=== PATIENT | male | born 1960 | race Caucasian/White ===

== ENCOUNTER 2022-10-17 08:00 | Inpatient (IN) | payer OTHER, SELFPAY ==
[2022-10-17 08:11] VITALS: BP 141/78; PULSE 85; RESP 16; TEMP 36.8; O2SAT 96; BMI 29.7
--- NOTE | 2022-10-17 08:37 | CRLHL7_ITS ---
For Patients: As a result of the Century Cures Act, medical imaging exams and procedure reports are released immediately into your electronic medical record. You may view this report before your referring provider. If you have questions, please contact your health care provider. Indication: LLQ abdominal pain Technique: Postcontrast CT abdomen and pelvis. 99 cc Isovue 370 intravenous contrast. Please note that all CT scans at this facility use dose modulation, iterative reconstruction, and/or weight-based dosing when appropriate to reduce radiation dose to as low as reasonably achievable. Comparison: Radiographs 09/29/2022 Findings: There is a short segment stricture involving the sigmoid colon extending over a length of 2 cm. Mild ill-defined curvilinear densities are present adjacent to this area. Mild diverticulosis. No diverticulitis. The colon is distended proximal to this area with the colon measuring up to 6.3 cm. This extends to the cecal region. Appendix normal. No small bowel obstruction. No free air or free fluid. No abscess. Vascular calcifications. No aneurysm. Bladder normal. Prostate mildly heterogeneous. Kidneys and ureters normal. Normal adrenal glands and spleen. Mild pancreatic atrophy. Incidental fat deposition within the liver adjacent to the falciform ligament. Gallbladder normal. Discogenic spurring. No fracture.. Impression: Short-segment stricture involving the sigmoid colon with proximal colonic obstruction. Differential diagnosis includes postinflammatory stricture or adenocarcinoma. Colonoscopy recommended for further evaluation. Please note that all CT scans at this facility use dose modulation, iterative reconstruction, and/or weight-based dosing when appropriate to reduce radiation dose to as low as reasonably achievable. Dictated by Pedro Fritz MD @ 10/17/2022 10:47:14 AM (Electronically Signed)
--- NOTE | 2022-10-17 08:38 | ED_ITS ---
HPI - Abdominal Pain General Chief Complaint: Abdominal Pain Stated Complaint: Lower Abdominal Pain Time Seen by Provider: 10/17/22 08:23 History of Present Illness HPI narrative: This 62-year-old male comes in reporting left lower quadrant abdominal pain for the past couple weeks. He did go into a clinic appointment few days after these symptoms arose and was told that he could have constipation. He states that he has not been having as many bowel movements because he has not been eating much. He states that he has been losing weight because any time he eats he has nausea and worsened symptoms. He denies having any fevers. There is no report of blood in the toilet. His pain is worse when bending forward and sometimes worse with movement. Related Data Home Medications Medication Instructions Recorded Confirmed No Known Home Medications 10/17/22 10/17/22 Allergies Allergy/AdvReac Type Severity Reaction Status Date / Time No Known Drug Allergies Allergy Verified 10/17/22 10:04 Review of Systems Status of ROS Reports: 10 or more systems reviewed and unremarkable except as noted in History and below Narrative Constitutional: No fevers, no weight gain or loss. Eyes: No discharge. No vision changes. HENT: No congestion, no sore throat, no ear pain. Cardiovascular: No chest pain, no palpitations. Respiratory: No shortness of breath, no wheezes, no cough. Gastrointestinal: No vomiting, no diarrhea. Abdominal pain described above. Loss of appetite. Genitourinary: No dysuria, no hematuria. Musculoskeletal: Normal range of motion. Skin: No rashes, no pruritis. Neurological: No dizziness, weakness, sensory change, speech change. Endo/Heme/Allergies: No bruising or bleeding. No polydipsia. Pysch: no suicidality, no anxiety, no insomnia. All other systems reviewed and are negative. [facility] Social History Smoking Status: Never smoker Do you use any of these nicotine containing products: None Second hand tobacco smoke exposure: No How often do you have a drink containing alcohol: never How often do you have six or more drinks on one occasion: Never AUDIT-C Alcohol total score: 0 Non-prescribed substance use: denies use service: No Exam Narrative: Exam Narrative: Constitutional: Well-developed, well-nourished, no acute distress. HEENT: Normocephalic, atraumatic. Neck: Normal range of motion. Nontender. Supple. Heart: Regular. No murmurs. Normal rate. Intact distal pulses. Lungs: Clear to auscultation. No chest discomfort. No wheezes, rhonchi, or rales. Abdomen: Decreased bowel sounds. Tenderness in the left lower quadrant. Mild rebound tenderness. Genitalia: Deferred. Back: No midline tenderness. Normal range of motion. Extremities: Normal range of motion. No injury. Skin: Intact. No rash. Warm. No erythema or pallor. Neurologic: No altered sensation. No weakness. Alert and oriented. Psychiatric: No suicidality. No anxiety or depression. No insomnia. Nursing notes and vitals signs are reviewed. Const: Vital Signs, click to edit/add: Vital Signs - 24 hr 10/17/22 08:11 10/17/22 10:56 10/17/22 13:19 Temperature 98.2 F 97.5 F L Pulse Rate [Right] 85 75 Respiratory Rate 16 18 18 Blood Pressure [Ri t Upper Arm] 141/78 H 141/74 H 122/68 Pulse Oximetry 96 98 97 Oxygen Delivery Me thod Room Air Room Air Room Air Course Vital Signs Vital signs: Initial Vital Signs Temperature 98.2 F 10/17/22 08:11 Temperature Source Temporal Artery Scan 10/17/22 08:11 Pulse Rate 85 10/17/22 08:11 Pulse Rhythm 10/17/22 08:11 Respiratory Rate 16 10/17/22 08:11 Blood Pressure 141/78 H 10/17/22 08:11 Blood Pressure Mean 99 10/17/22 08:11 Blood Pressure Position Sitting 10/17/22 08:11 Pulse Oximetry 96 10/17/22 08:11 Oxygen Delivery Method 10/17/22 08:11 Vital Signs Temperature 98.2 F 10/17/22 08:11 Pulse Rate 85 10/17/22 08:11 Respiratory Rate 16 10/17/22 08:11 Blood Pressure 141/78 H 10/17/22 08:11 Pulse Oximetry 96 10/17/22 08:11 Oxygen Delivery Method 10/17/22 08:11 Temperature 97.5 F L 10/17/22 13:19 Pulse Rate 75 10/17/22 13:19 Respiratory Rate 18 10/17/22 13:19 Blood Pressure 122/68 10/17/22 13:19 Pulse Oximetry 97 10/17/22 13:19 Oxygen Delivery Method 10/17/22 13:19 MDM - Abdominal Pain MDM Narrative Medical decision making narrative: This patient comes in with a couple weeks of left lower quadrant abdominal pain. Prior to this he has been in good health and is not taking any medicines. He has had weight loss with difficulty with eating and even taking liquids. A CT scan of the abdomen and pelvis with contrast was completed and does show sign of a stricture or possible adenocarcinoma in the rectum causing dilation of the colon proximally. His lab results returned with normal findings. I spoke with the surgeon on-call, Dr. Bueno, regarding these findings. She is planning to take him to surgery tomorrow morning. I spoke with Dr. Zhang, hospitalist on- call, regarding his admission. The patient did receive 1 dose of Dilaudid 0.5 mg for pain relief. Lab Data Labs: Lab Results 10/17/22 10/17/22 10/17/22 Range/Units 08:50 08:50 12:07 WBC 7.19 (4.50-11.00) K/uL RBC 5.40 (4.30-5.90) m/uL Hgb 15.8 (13.5-17.5) gm/dL Hct 48.1 (37.0-53.0) % MCV 89 (80-100) fL MCH 29 (26-34) pg MCHC 33 (32-36) gm/dL RDW Coeff of Joie 12.9 (11.5-15.5) % Plt Count 315 (140-440) K/uL Neut % (Auto) 70.1 (42.0-72.0) % Lymph % (Auto) 20.9 (20-44) % [place] % (Auto) 7.8 (0.0-11.0) % Eos % (Auto) 1.1 (0.0-7.0) % Baso % (Auto) 0.0 (0.0-3.0) % Neut # (Auto) 5.04 (1.7-7.0) K/uL Lymph # (Auto) 1.50 (0.90-2.90) K/uL [place] # (Auto) 0.60 (0.00-0.90) K/UL Eos # (Auto) 0.08 (0.00-0.50) K/uL Baso # (Auto) 0.00 (0.00-0.30) K/uL Sodium 140 (135-149) mmol/L Potassium 3.9 (3.6-5.1) mmol/L Chloride 108 (96-114) mmol/L Carbon Dioxide 24 (20-32) mmol/L BUN 12 (7-30) mg/dL Creatinine 0.8 (0.5-1.5) mg/dL Estimated Creat Clear 84.34 Estimated GFR 99 ml/min Glucose 108 (60-115) mg/dL Calcium 9.1 (8.4-10.6) mg/dL Urine Color Yellow (Yellow) Urine Appearance Clear (Clear) Urine pH 6.0 (5.0-8.5) Ur Specific [place] 1.010 (1.000-1.030) Urine Protein Negative (Negative) Urine Glucose (UA) Negative (Negative) Urine Ketones 3+ A (Negative) Urine Blood Negative (Negative) Urine Nitrite Negative (Negative) Urine Bilirubin 1+ A (Negative) Urine Urobilinogen 0.2 (0.2-1.0) Ur Leukocyte Esterase Negative (Negative) Urine RBC 0-2 (0-2) Urine WBC 0-2 (0-5) Ur Squamous Epith Cells None (None-Few) Urine Bacteria None (None) SARS-CoV-2 (PCR) (Negative) 10/17/22 Range/Units 12:41 WBC (4.50-11.00) K/uL RBC (4.30-5.90) m/uL Hgb (13.5-17.5) gm/dL Hct (37.0-53.0) % MCV (80-100) fL MCH (26-34) pg MCHC (32-36) gm/dL RDW Coeff of Joie (11.5-15.5) % Plt Count (140-440) K/uL Neut % (Auto) (42.0-72.0) % Lymph % (Auto) (20-44) % [place] % (Auto) (0.0-11.0) % Eos % (Auto) (0.0-7.0) % Baso % (Auto) (0.0-3.0) % Neut # (Auto) (1.7-7.0) K/uL Lymph # (Auto) (0.90-2.90) K/uL [place] # (Auto) (0.00-0.90) K/UL Eos # (Auto) (0.00-0.50) K/uL Baso # (Auto) (0.00-0.30) K/uL Sodium (135-149) mmol/L Potassium (3.6-5.1) mmol/L Chloride (96-114) mmol/L Carbon Dioxide (20-32) mmol/L BUN (7-30) mg/dL Creatinine (0.5-1.5) mg/dL Estimated Creat Clear Estimated GFR ml/min Glucose (60-115) mg/dL Calcium (8.4-10.6) mg/dL Urine Color (Yellow) Urine Appearance (Clear) Urine pH (5.0-8.5) Ur Specific [place] (1.000-1.030) Urine Protein (Negative) Urine Glucose (UA) (Negative) Urine Ketones (Negative) Urine Blood (Negative) Urine Nitrite (Negative) Urine Bilirubin (Negative) Urine Urobilinogen (0.2-1.0) Ur Leukocyte Esterase (Negative) Urine RBC (0-2) Urine WBC (0-5) Ur Squamous Epith Cells (None-Few) Urine Bacteria (None) SARS-CoV-2 (PCR) Negative SARS-CoV-2 (Negative) Imaging Data CT scan - abdomen: Radiologist's impression: There is a short segment stricture involving the sigmoid colon extending over a length of 2 cm. Mild ill-defined curvilinear densities are present adjacent to this area. Mild diverticulosis. No diverticulitis. The colon is distended proximal to this area with the colon measuring up to 6.3 cm. This extends to the cecal region. Appendix normal. No small bowel obstruction. No free air or free fluid. No abscess. Vascular calcifications. No aneurysm. Bladder normal. Prostate mildly heterogeneous. Kidneys and ureters normal. Normal adrenal glands and spleen. Mild pancreatic atrophy. Incidental fat deposition within the liver adjacent to the falciform ligament. Gallbladder normal. Discogenic spurring. No fracture.. Impression: Short-segment stricture involving the sigmoid colon with proximal colonic obstruction. Differential diagnosis includes postinflammatory stricture or adenocarcinoma. Colonoscopy recommended for further evaluation. Chest x-ray: Radiologist's impression: No acute pathology. ECG Data Attestation: I personally reviewed and interpreted this ECG as follows: Interpretation: Normal sinus rhythm. Rate is 76 beats per minute. There are no ST or T-wave abnormalities. Discharge Plan Discharge Clinical Impression: Bowel obstruction, Abdominal pain Patient Disposition: Admitted As Inpatient Condition: Unchanged Prescriptions: No Action No Known Home Medications Follow Up/Referrals: Provider,Not a Local [Primary Care Provider] -
[2022-10-17 09:00] LABS: Eosinophils Absolute Auto 0.08 K/uL (0.00-0.50); Eosinophils Percent Auto 1.1 % (0.0-7.0); Hematocrit 48.1 % (37.0-53.0); Hemoglobin* 15.8 gm/dL (13.5-17.5); Immature Granulocytes Abs Auto 0.01 K/uL (0.00-0.30); Immature Granulocytes Pct Auto 0.1 %; Lymphocytes Percent Auto 20.9 % (20-44); Mean Corpuscular HGB Conc 33 gm/dL (32-36); Mean Corpuscular Hemoglobin 29 pg (26-34); Mean Corpuscular Volume 89 fL (80-100); Monocytes Percent Auto 7.8 % (0.0-11.0); Neutrophils Absolute Auto 5.04 K/uL (1.7-7.0); Neutrophils Percent Auto 70.1 % (42.0-72.0); Platelet Count* 315 K/uL (140-440); RDW Coefficient of Variation % 12.9 % (11.5-15.5); Slide Review Reflex No; White Blood Count* 7.19 K/uL (4.50-11.00)
[2022-10-17 09:55] LABS: Chloride* 108 mmol/L (96-114); Potassium* 3.9 mmol/L (3.6-5.1); Sodium* 140 mmol/L (135-149)
[2022-10-17 09:56] LABS: Blood Urea Nitrogen* 12 mg/dL (7-30); Calcium* 9.1 mg/dL (8.4-10.6); Carbon Dioxide* 24 mmol/L (20-32); Creatinine* 0.8 mg/dL (0.5-1.5); Est. Creatinine Clearance* 84.34; Estimated Glomerular Filt Rate 99 ml/min; Glucose* 108 mg/dL (60-115)
[2022-10-17] MEDS: 0.9 % SODIUM CHLORIDE 1000 ml 1,000 ML IV (10:53)
[2022-10-17 10:56] VITALS: BP 141/74; RESP 18; O2SAT 98
--- NOTE | 2022-10-17 11:44 | CRLHL7_ITS ---
For Patients: As a result of the Cures Act, medical imaging exams and procedure reports are released immediately into your electronic medical record. You may view this report before your referring provider. If you have questions, please contact your health care provider. INDICATION: Abdominal pain. COMPARISON: Two-view chest June 23, 2022. TECHNIQUE: Two-view chest. FINDINGS: Normal size cardiac silhouette. No acute pneumonic infiltrates or CHF. No pneumothorax or pleural effusion. Impression: No acute pathology. Dictated by Sindhu Mcpherson MD @ 10/17/2022 12:53:29 PM (Electronically Signed)
[2022-10-17 12:18] LABS: Appearance Urine Clear (Clear); Bilirubin Urine 1+ (Negative); Blood Urine Negative (Negative); Color Urine Yellow (Yellow); Glucose Urine Negative (Negative); Ketones Urine 3+ (Negative); Leukocyte Esterase Urine Negative (Negative); Nitrite Urine Negative (Negative); Protein Urine Negative (Negative); Urobilinogen Urine 0.2 (0.2-1.0)
[2022-10-17 12:34] LABS: RBC Urine 0-2 (0-2); WBC Urine 0-2 (0-5)
--- NOTE | 2022-10-17 13:14 | ED.NURSE ---
is asking for something for pain. will have surgery tomorrow. dr pierre did explain ct findings.
[2022-10-17 13:19] VITALS: BP 122/68; PULSE 75; RESP 18; TEMP 36.4; O2SAT 97
[2022-10-17] MEDS: HYDROmorphone 0.5 mg/0.5 ml inj IVP (13:34)
[2022-10-17 13:47] LABS: SARS PCR* Negative SARS-CoV-2 (Negative)
--- NOTE | 2022-10-17 14:50 | ED.NURSE ---
did give report to jose ireland.
[2022-10-17 15:08] VITALS: BP 122/68; PULSE 73; RESP 18; TEMP 36.4; O2SAT 97
[2022-10-17 16:06] LABS: Albumin* 4.3 g/dL (3.3-5.0)
[2022-10-17 16:08] LABS: Bilirubin Direct* 0.3 mg/dL (0.0-0.5); Bilirubin Total* 0.7 mg/dL (0.1-1.5); Total Protein* 7.2 g/dL (6.0-8.3)
[2022-10-17 16:09] LABS: Alanine Aminotransferase* 19 U/L (4-50); Alkaline Phosphatase* 67 U/L (40-150); Aspartate Amino Transferase* 28 U/L (12-35)
[2022-10-17] MEDS: LACTATED RINGERS 1000 ML 500 ML IV (16:53)
[2022-10-17] MEDS: ONDANSETRON 2 MG/ML inj 4 MG IVP ×2 (16:56→21:09)
[2022-10-17] MEDS: PANTOPRAZOLE SODIUM 40 MG INJ IVP (16:56)
[2022-10-17] MEDS: MORPHINE 2 MG/ML inj 4 MG IVP (16:56)
--- NOTE | 2022-10-17 17:32 | PM.IMHP1 ---
Hospitalist- H&P: HPI History of Present Illness Date Seen: 10/17/22 Chief complaint: Lower Abdominal Pain Narrative: Brigido Kay is a 62 year old male with at least 2 month history of worsening postprandial nausea and abdominal bloating, pain, constipation. He reports he is still having stools but is requiring enemas every other day to accomplish this. No blood in his stool. Stool is normal brown color and formed. He does not report decreased caliber of his stool. He has had 25 lb unintentional weight loss over these past 2 months. No fever. He has had nausea which has been severe. Along with this he gets dry heaves. Not vomiting any significant substance. He has had no previous surgery including no previous gastrointestinal surgery. No previous gastrointestinal problems. He had a normal colonoscopy about 10 years ago. He reports that he is otherwise healthy without other health concerns or problems recently. Review of Systems Narrative: No recent illness. He has not had recent COVID illness, cough, cold symptoms, fever, shortness of breath, chest pain, palpitations, syncope, urinary problems, bleeding or clotting problems. No previous surgeries or or adverse reaction to anesthesia. Several years ago he had an anal fissure that was treated with a topical cream and resolved. PFSH PFS Surgical History (Updated 10/17/22 @ 17:37 by Aiden Zhang MD) History of colonoscopy Family History (Updated 10/17/22 @ 17:38 by Aiden Zhang MD) Mother Multiple myeloma Father Bladder cancer Social History (Updated 10/17/22 @ 17:40 by Aiden Zhang MD) Narrative: He is and presents with his . He works for [employer] in [place]. He lives in [place]. His , Ladi, is healthcare power of corporate attorney. Code status is full. He is a nonsmoker. He does not drink alcohol. He does not use recreational drugs Smoking Status: Never smoker Do you use any of these nicotine containing products: None Second hand tobacco smoke exposure: No How often do you have a drink containing alcohol: never How often do you have six or more drinks on one occasion: Never AUDIT-C Alcohol total score: 0 Non-prescribed substance use: denies use service: No Meds Home Medications and Allergies Home Medications Medication Instructions Recorded Confirmed Type No Known Home Medications 10/17/22 10/17/22 History Home Medication Comments: He takes vitamins and occasionally takes ibuprofen but not recently Allergies Allergy/AdvReac Type Severity Reaction Status Date / Time No Known Drug Allergies Allergy Verified 10/17/22 10:04 Exam Narrative: Exam Narrative: He is alert and appears in no distress. He gives his own history corroborated by his . Head is normal. Eyes normal. Oropharynx normal except for a somewhat small airway. Neck is supple without mass or adenopathy. Respirations are clear to auscultation. Cardiovascular: S1, S2, regular rate and rhythm. No murmur gallop or rub. Abdomen: Bowel sounds diminished. Abdomen is somewhat distended. There is mild diffuse tenderness. When I palpate on his abdomen it does increase his nausea. External genitalia normal. Extremities without edema. good peripheral pulses. No rash. Const: Vital Signs, click to edit/add: Vital Signs - 24 hr 10/17/22 08:11 10/17/22 10:56 10/17/22 13:19 Temperature 98.2 F 97.5 F L Pulse Rate [Right] 85 75 Respiratory Rate 16 18 18 Blood Pressure [Ri ght Upper Arm] 141/78 H 141/74 H 122/68 Pulse Oximetry 96 98 97 Oxygen Delivery Me thod Room Air Room Air Room Air Documenting provider has reviewed patient's vital signs: yes Hospitalist - H&P: Result Labs Labs: Short CBC 10/17/22 Range/Units 08:50 WBC 7.19 (4.50-11.00) K/uL Hgb 15.8 (13.5-17.5) gm/dL Hct 48.1 (37.0-53.0) % Plt Count 315 (140-440) K/uL BMP 10/17/22 08:50 Sodium 140 Potassium 3.9 Chloride 108 Carbon Dioxide 24 BUN 12 Creatinine 0.8 Glucose 108 Calcium 9.1 Liver Function 10/17/22 Range/Units 08:50 Total Bilirubin 0.7 (0.1-1.5) mg/dL Direct Bilirubin 0.3 (0.0-0.5) mg/dL AST 28 (12-35) U/L ALT 19 (4-50) U/L Alkaline Phosphatase 67 (40-150) U/L Albumin 4.3 (3.3-5.0) g/dL Urine 10/17/22 Range/Units 12:07 Urine Color Yellow (Yellow) Urine Appearance Clear (Clear) Urine pH 6.0 (5.0-8.5) Ur Specific [place] 1.010 (1.000-1.030) Urine Protein Negative (Negative) Urine Glucose (UA) Negative (Negative) Assessment and Plan Assessment and plan (1) Colonic obstruction: Problem comment: Patient has an obstruction his sigmoid colon. Cause is uncertain. Surgery is consulted. Plan is to take him to the OR for open sigmoid resection with placement of a colostomy. Plan is discussed with patient and his . Status: Acute Plan Admit for colon surgery. I have identified no significant health problems that would complicate perioperative care. Patient is at relatively low risk for perioperative complications. Total time spent today is 70 minutes, 50 minutes in coordination care and discussing with patient and and other providers ongoing evaluation management of sigmoid colon obstruction
[2022-10-17 19:00] VITALS: BP 126/77; PULSE 78; RESP 18; TEMP 36.6; O2SAT 95
--- NOTE | 2022-10-17 19:33 | PC.NURSE ---
Nursing Care Notes: [id number] Pt this shift came up from ED in wheelchair, able to ambulate self in and out of chair. No c/o pain upon arrival but rated 8/10 about 1700. Pain meds given per eMAR, as well as anti nausea per pt request. 1 unwitnessed emesis per pt report while on unit. Resting in bed most of shift. NPO for surgery tomorrow.
[2022-10-17] MEDS: LACTATED RINGERS 1000 ML 1,000 ML 125 ML IV (21:11)
[2022-10-17 23:00] VITALS: RESP 18
[2022-10-18] VITALS (23 sets, daily range): BP systolic 96–125; BP diastolic 58–89; PULSE 72–90; RESP 14–20; TEMP 36.1–37; O2SAT 90–97
[2022-10-18] MEDS: MORPHINE 2 MG/ML inj 4 MG IVP ×2 (01:07→14:55)
--- NOTE | 2022-10-18 04:38 | PC.NURSE ---
patient NPO overnight, pain and nausea meds given per EMAR. patient up ad [place] in room.
[2022-10-18] MEDS: LACTATED RINGERS 1000 ML 1,000 ML 125 ML IV (04:55)
--- NOTE | 2022-10-18 07:59 | P.GSCN_ITS ---
History of Present Illness Consult details Date Seen: 10/18/22 Consult date: 10/18/22 Narrative: 62-year-old male presented to emergency room with abdominal pain and inability to eat and I was asked by Dr. Ramirez to see him in consultation. Patient states that the day prior to presentation he was trying to eat applesauce and had significant nausea and dry heaving. He has been having issues with eating for the past several weeks. He was also having small bowel movements. He was passing lot of gas but it was difficult to have bowel movements. He was seen in clinic a couple weeks ago with constipation and was recommended to take MiraLax. He tried MiraLax with no relief and was recommended to take enemas. Patient had about 25 lb unintentional weight loss in the last few weeks. Patient's last colonoscopy was about 8-10 years ago. He denies family history of colon cancer but his dad had polyps. I reviewed patient's chart and his laboratory values were all normal. His hemoglobin was normal and his white count was normal. An abdominal CT showed a sigmoid colon stricture with proximal colonic dilatation that appears to be chronic. There is no dilated small intestine. No lymphadenopathy near the stricture. Review of Systems Narrative: General: no fevers HENT: no problems swallowing CV: no shortness of breath Resp: no cough GI: No nausea, vomiting, abdominal pain PFSH PFSH Surgical History (Updated 10/17/22 @ 17:37 by Aiden Zhang MD) History of colonoscopy Family History (Updated 10/17/22 @ 17:38 by Aiden Zhang MD) Mother Multiple myeloma Father Bladder cancer Social History (Updated 10/17/22 @ 17:40 by Aiden Zhang MD) Narrative: He is and presents with his . He works for [employer] in [place]. He lives in [place]. His , Ladi, is healthcare power of estate attorney. Code status is full. He is a nonsmoker. He does not drink alcohol. He does not use recreational drugs Highest level of school completed/degree received: some college, no degree Smoking Status: Never smoker Do you use any of these nicotine containing products: None Second hand tobacco smoke exposure: No How often do you have a drink containing alcohol: never How often do you have six or more drinks on one occasion: Never AUDIT-C Alcohol total score: 0 Non-prescribed substance use: denies use service: No Meds Home Medications and Allergies Home Medications Medication Instructions Recorded Confirmed Type No Known Home Medications 10/17/22 10/17/22 History Allergies Allergy/AdvReac Type Severity Reaction Status Date / Time No Known Drug Allergies Allergy Verified 10/17/22 10:04 Exam Narrative: Exam Narrative: General appearance: Alert, cooperative, and in no distress Pulmonary: Chest symmetric, lungs clear bilaterally Cardiovascular Heart: Regular rate and rhythm, S1, S2, no murmurs/rubs/gallops Gastrointestinal Abdominal: soft, protuberant, minimally distended, not tender to palpation Skin: Normal skin color, texture, and turgor. No rashes or lesions. Psychiatric: Alert, cooperative, normal affect. Const: Vital Signs, click to edit/add: Vital Signs - 24 hr 10/17/22 08:11 10/17/22 10:56 10/17/22 13:19 Temperature 98.2 F 97.5 F L Pulse Rate [Right Pulse Oximeter] Pulse Rate [Right] 85 75 Respiratory Rate 16 18 18 Blood Pressure [Ri ght Arm] Blood Pressure [Ri ght Upper Arm] 141/78 H 141/74 H 122/68 Pulse Oximetry 96 98 97 Oxygen Delivery Me thod Room Air Room Air Room Air 10/17/22 15:08 10/17/22 19:00 10/17/22 23:00 Temperature 97.5 F L 98 F Pulse Rate [Right Pulse Oximeter] 73 78 Pulse Rate [Right] Respiratory Rate 18 18 18 Blood Pressure [Ri ght Arm] 122/68 126/77 Blood Pressure [Ri ght Upper Arm] Pulse Oximetry 97 95 Oxygen Delivery Me thod Room Air Room Air 10/17/22 23:00 10/18/22 01:10 10/18/22 05:00 Temperature 98 F 98 F Pulse Rate [Right Pulse Oximeter] 83 76 Pulse Rate [Right] Respiratory Rate 18 18 18 Blood Pressure [Ri ght Arm] 125/77 Blood Pressure [Ri ght Upper Arm] Pulse Oximetry 95 95 Oxygen Delivery Me thod Room Air Room Air 10/18/22 07:43 Temperature 97.7 F Pulse Rate [Right Pulse Oximeter] 72 Pulse Rate [Right] Respiratory Rate 18 Blood Pressure [Ri ght Arm] 120/75 Blood Pressure [Ri ght Upper Arm] Pulse Oximetry 97 Oxygen Delivery Me thod Room Air Results Labs Labs: Abnormal lab results 10/17/22 Range/Units 12:07 Urine Ketones 3+ A (Negative) Urine Bilirubin 1+ A (Negative) Diabetes panel 10/17/22 Range/Units 08:50 Sodium 140 (135-149) mmol/L Potassium 3.9 (3.6-5.1) mmol/L Chloride 108 (96-114) mmol/L Carbon Dioxide 24 (20-32) mmol/L BUN 12 (7-30) mg/dL Creatinine 0.8 (0.5-1.5) mg/dL Glucose 108 (60-115) mg/dL Calcium 9.1 (8.4-10.6) mg/dL AST 28 (12-35) U/L ALT 19 (4-50) U/L Alkaline Phosphatase 67 (40-150) U/L Total Protein 7.2 (6.0-8.3) g/dL Albumin 4.3 (3.3-5.0) g/dL Calcium panel 10/17/22 Range/Units 08:50 Calcium 9.1 (8.4-10.6) mg/dL Albumin 4.3 (3.3-5.0) g/dL Pituitary panel 10/17/22 Range/Units 08:50 Sodium 140 (135-149) mmol/L Potassium 3.9 (3.6-5.1) mmol/L Chloride 108 (96-114) mmol/L Carbon Dioxide 24 (20-32) mmol/L BUN 12 (7-30) mg/dL Creatinine 0.8 (0.5-1.5) mg/dL Glucose 108 (60-115) mg/dL Calcium 9.1 (8.4-10.6) mg/dL Adrenal panel 10/17/22 Range/Units 08:50 Sodium 140 (135-149) mmol/L Potassium 3.9 (3.6-5.1) mmol/L Chloride 108 (96-114) mmol/L Carbon Dioxide 24 (20-32) mmol/L BUN 12 (7-30) mg/dL Creatinine 0.8 (0.5-1.5) mg/dL Glucose 108 (60-115) mg/dL Calcium 9.1 (8.4-10.6) mg/dL Total Bilirubin 0.7 (0.1-1.5) mg/dL AST 28 (12-35) U/L ALT 19 (4-50) U/L Alkaline Phosphatase 67 (40-150) U/L Total Protein 7.2 (6.0-8.3) g/dL Albumin 4.3 (3.3-5.0) g/dL All other labs normal. Assessment and Plan Assessment and plan (1) Colonic obstruction: Problem comment: Patient has an obstruction his sigmoid colon. Cause is uncertain. Surgery is consulted. Plan is to take him to the OR for open sigmoid resection with placement of a colostomy. Plan is discussed with patient and his . Status: Acute Plan 62-year-old male presents with sigmoid colon stricture and proximal colonic obstruction of unknown etiology. I discussed with the patient and his his laboratory and imaging findings. Patient's sigmoid stricture could be either due to diverticular disease although patient did not have any episodes of diverticulitis that he can recall or it could be due to colorectal cancer. I recommended to proceed with laparoscopic, possible open sigmoid colectomy. The procedure was discussed in detail. If there is a significant size mismatch of the proximal and distal colon after the resection, will plan on colostomy. I described to the patient that this colostomy would be temporary. The risks with the procedure including infection, bleeding, anastomotic leak, colonic injury, and injury to other intra-abdominal organs were all discussed with the patient, and he agreed to proceed.
[2022-10-18] MEDS: ERTAPENEM 1 GM inj IVPB (08:32)
--- NOTE | 2022-10-18 09:03 | PC.NURSE ---
pt to surgery @ 0815 via bed
--- NOTE | 2022-10-18 09:14 | SUR.OPER ---
Update call made to , Arabella, at 9am, surgery has begun.
[2022-10-18] MEDS: BUPIVACAINE 0.5% 30 ML INJECTION (09:15)
--- NOTE | 2022-10-18 09:36 | P.NB_ITS ---
Nerve Block Nerve Block Time Seen by Provider: 08:25 Date Seen: 10/18/22 Type of block requested by surgeon for post-operative analgesia: TAP Side: bilateral Time out performed: Yes Verification of patient name: Yes Verification of date of : Yes Name of person performing procedure: Zachery Tamez CRNA Continuous monitoring Was continuous monitoring of O2 sat, B/P, hotel casino floorperson, recorded every 15 minutes?: Yes Procedure Checklist: sterile prep, needles and gloves Ultrasound guided. Images saved: Yes Medications given in 5ml increments after negative aspiration: Marcaine (30 total) %: 25 mL: 15 Needle gauge: 20 and Exparel (10 total) mL: 5 Needle gauge: 20 Patient tolerated procedure well: Yes Block Charges Block Charge (with Pro Fee): TAP Bilateral Use of Ultrasound Machine for Block: Yes- US Guidance/pain block
--- NOTE | 2022-10-18 10:29 | SUR.OPER ---
Patients , Arabella, was updated on the procedure surgeon needed to convert to open an procedure at approximately 10am.
[2022-10-18] MEDS: LACTATED RINGERS 1000 ML 1,000 ML 100 ML IV ×3 (12:20→12:55)
--- NOTE | 2022-10-18 13:17 | SUR.OPER ---
Update call placed to , Arabella, at approximately 1250pm
--- NOTE | 2022-10-18 14:08 | W.ANESCHARGE ---
Anesthesia Charges Start Date/Time Anesthesia Start Date: 10/18/22 Anesthesia Start Time: 08:20 Stop Date/Time Anesthesia Stop Date: 10/18/22 Anesthesia Stop Time: 13:55 Summary Emergency: Yes
--- NOTE | 2022-10-18 14:35 | P.GSOP_ITS ---
Operative Note Date of procedure: 10/18/22 Type of Procedure: 1. Laparoscopic converted to open sigmoidectomy. 2. End descending colostomy. Procedure Description: After discussing the risks and benefits of the procedure, the patient signed informed consent.? The patient was brought to the operating room and placed on the operating table in supine position.? Care was taken to pad the patient's pressure points.? The patient was then intubated by anesthesia.??Patient was then placed in modified lithotomy. A Silva catheter was placed under sterile conditions. The operative site was then prepped and draped in the usual sterile fashion.? A time-out was then performed. The abdomen was entered in the left upper quadrant using a Visiport technique. The abdominal wall layers were visualized and the abdomen was entered. The abdomen was insufflated with carbon dioxide. No intra-abdominal injury was noted in the left upper quadrant. We then placed additional laparoscopic ports under direct visualization. A 5 mm port was placed above the umbilicus and in the right mid abdomen, and 12 mm port was placed in the right lower quadrant. The patient was placed in the Trendelenburg position with the left side up. The sigmoid colon was identified. The stricture was palpated in the proximal sigmoid colon. This was tightly adherent to the lateral abdominal wall. Those adhesions were taken down with Harmonic scalpel by excising peritoneum that was adherent to the sigmoid colon. The dissection was carried towards retroperitoneum. The left ureter was not identified in this view but care was taken not to injure it. Once the strictured colon adherent to the abdominal wall was mobilized, I directed my attention to the medial colonic mesentery. The sigmoid colon was retracted towards the abdominal wall. It was difficult to grasp the sigmoid colon in this location. Sigmoid mesentery was incised with the Harmonic scalpel but visualization was difficult due to abundance of small intestine with some of the loops of small intestine being dilated. During this dissection a hot blade of Harmonic scalpel accidentally touched the small intestine. This injured area was examined and decision was made to over-sew this with silk sutures. 3-0 silk suture was used to place 2 interrupted Lambert sutures over the injured serosa. This was done intracorporeally. The small bowel lumen was widely open after the sutures were placed. I then attempted to carry the dissection towards the pelvis by dividing the sigmoid mesentery with Harmonic scalpel. However, visualization was very difficult with dilated colon and small-bowel occupying a lot of the intra-abdominal space. Decision was made to convert this procedure to an open procedure. The laparoscopic ports were then removed. A lower midline skin incision was made with a scalpel starting just above the umbilicus and extended to the pubic bone. Subcutaneous fat was divided with cautery. The subcutaneous fat was at least 4-5 cm thick. The anterior fascia was grasped with Rukhsana clamps and incised with cautery. Posterior sheath and peritoneum were grasped with Claudia clamps and abdomen was entered with Metzenbaum scissors. The incision was then extended superiorly and inferiorly up to the length of the skin incision. An Omni retractor was then placed and used throughout the case. The small bowel that was previously oversewn was examined and appeared healthy. No additional sutures were placed. The small bowel was retracted cephalad and secured in place with Omni retractor blades. We continued with mobilization of sigmoid colon mesentery. The vascular pedicle of the sigmoid colon was identified. This was clamped with right angle clamps, divided with Metzenbaum scissors, and tied with Vicryl ties. Sigmoid colonic mesentery dissection was carried towards the pelvis with the Harmonic scalpel. The superior rectal artery and vein were divided with clamps and ties. Left laterally I was able to identify the ureter and that was away from our dissection. When the distal sigmoid colon was mobilized, it was divided with a contour stapler. The Bert's pouch staple line was examined and bleeding from the staple line was oversewn with Vicryl sutures. The sigmoid colon was then retracted cephalad and mesenteric dissection was carried to the mid descending colon. The white line of Toldt was divided with cautery as well. At this time I elected to proceed with creating an ostomy opening. The anterior fascia on the left side was grasped with Rukhsana clamps. An elliptical skin incision was made with cautery and the left mid abdomen. Subcutaneous fat was dissected with cautery down to the anterior fascia. A cruciate incision was made through the anterior fascia and rectus muscle was retracted medially and laterally. Posterior sheath and peritoneum were then incised with cautery. The opening was large enough to fit 2 fingers through. I attempted to exteriorize the mobilized sigmoid colon however the stricture was thickened and I was not able to exteriorized the entire colon. The sigmoid colon was then divided with 2 ELIZABETH jen at the level of the mid descending colon. The specimen was passed off the field to be examined on the back table. At the end of the case I did examine the specimen, and it was suspicious for diverticular stricture. The stapled end of the descending colon was then exteriorized through the stoma opening. The descending colon was sutured in place to the anterior fascia with Vicryl sutures. The stoma was not matured at this time. We then proceeded with abdominal closure. The abdomen was irrigated with normal saline. No bleeding was seen at all surgical sites. The omentum was placed over the small intestine. The anterior fascia was then closed with 2 running 0-0 Maxon sutures. Subcutaneous fat was a bundant and was reapproximated with interrupted Vicryl sutures. The dermis was reapproximated with interrupted 3-0 Vicryl sutures. The skin of the midline incision was closed with jen. The right lower quadrant incision fascia was closed with an interrupted 0-0 Vicryl suture. All laparoscopic skin incisions were closed with 4-0 Monocryl stitch. Steri-Strips were placed over the laparoscopic incisions. The midline laparotomy incision was then covered with gauze and tape. I then proceeded with maturing the end colostomy. The anterior fascia next to the colostomy was closed with a running 0-0 Vicryl suture because the fascial opening appeared to be too lax. The protruding colonic and was difficult to eviscerate above the level of the skin because of the thickened nature of the a bdominal wall. Medially the skin incision was reapproximated with Vicryl sutures to make the skin incisions smaller. The staple line was excised with cautery. The mucosa of the stoma appeared to be dusky at the surface of the skin but when intubated no pressure or tight areas were noted through the fascial opening. Medially I elected to close the colonic opening to make the common opening through the ostomy skin incision smaller. The stoma was then matured by placing interrupted Vicryl sutures of the mucosa 2 colonic serosa and dermis in the Marla like fashion. Mucosa was then additionally reapproximated to the dermis with interrupted 3-0 Vicryl sutures. The stoma again was examined because the mucosa above the level of the skin appeared dusky but mucosa in the stoma was healthy in appearance. The ostomy appliance was then placed over the stoma. ?All counts were correct at the end of the case. The patient was then woken and transported to the recovery area in stable condit ion. ? The patient tolerated the procedure well. Findings: Proximal sigmoid colon stricture most likely due to diverticular disease. Anesthesia: GETA Surgeon: Justyn Bueno MD Estimated blood loss (mL): 15 Condition: stable Disposition: PACU
--- NOTE | 2022-10-18 15:40 | PC.NURSE ---
shift note: pt back to ccu3 via bed @0860. pt drowsy. lap sites x4 c/d/i. vertical drs to lt midabd c/d/i. colostomy site dry with loose brown stool in bag. BS present to rt side. LS clr. pt on 2L pnc O2. cardoza patent with clr wan urine. morphine sulfate given IV for 10/10 abd pain
[2022-10-18] MEDS: HYDROmorphone 0.5 mg/0.5 ml inj IVP ×3 (17:06→22:19)
--- NOTE | 2022-10-18 23:42 | PC.NURSE ---
End of Shift: Patient pleasant and cooperative. Afebrile. Rating pain at start of shift 10/10 after previous RN administered Morphine, Updated MD and order changed to Dilaudid. Dilaudid given x3 this shift and pain decreased to 4-5/10. O2 sats decrease to 87% when patient is sleeping, 1L NC to keep sats greater than 90%. Ostomy with 200 mL brown liquid output this shift and heard flatus passed in to bag. Silva patent. Patient declined to get out of bed. Encouraged frequent shifting of weight and frequent turn and reposition.
[2022-10-19] MEDS: LACTATED RINGERS 1000 ML 1,000 ML 100 ML IV ×3 (00:29→19:02)
[2022-10-19] MEDS: HYDROmorphone 0.5 mg/0.5 ml inj IVP ×7 (02:41→23:00)
[2022-10-19 03:00] VITALS: BP 109/65; PULSE 89; RESP 18; TEMP 36.8; O2SAT 94
[2022-10-19 07:30] VITALS: BP 118/68; PULSE 90; RESP 16; RESP 18; TEMP 36.8; O2SAT 95
--- NOTE | 2022-10-19 07:58 | PC.NURSE ---
Shift note: Surgical dressing is intact, stoma's dressing overlaps it and leaked on the edge of the dressing. Oncoming RN notified. Pain 5-7/10 treated per eMAR with relief. Bowel sounds present
[2022-10-19 11:00] VITALS: BP 114/78; PULSE 78; RESP 16; TEMP 36.9; O2SAT 93
--- NOTE | 2022-10-19 11:38 | PC.NURSE ---
up in recliner. wound care and ostomy replaced
--- NOTE | 2022-10-19 11:44 | PM.GSPN ---
Subjective Subjective Date Seen: 10/19/22 Interval history: Patient is doing well postoperatively. He does complain of abdominal pain that is relieved with pain medication. He had stool and gas from his stoma. Denies any vomiting. Had okay urine output. Exam Narrative: Exam Narrative: Abdomen not distended, tender to palpation throughout, midline laparotomy incision is with intact jen. The dressing over laparotomy incision was changed because of social each from the ostomy appliance. The ostomy appliance was removed and the colostomy appears congested with 2 areas of dark appearing mucosa laterally and medially. Nitro-Bid was applied to a tiny piece of Xeroform and applied over those dusky areas of colostomy. A new stoma appliance was applied. Const: Vital Signs, click to edit/add: Vital Signs - 24 hr 10/18/22 13:50 10/18/22 13:55 10/18/22 14:00 Temperature 98.6 F Pulse Rate 87 85 90 Pulse Rate [Right Pulse Oximeter] Respiratory Rate 18 18 18 Blood Pressure 116/71 110/67 104/69 Blood Pressure [Le ft Arm] Blood Pressure [Ri ght Arm] Pulse Oximetry 90 96 94 Oxygen Delivery Me thod OxyMask OxyMask OxyMask Oxygen Flow Rate 8 8 8 10/18/22 14:05 10/18/22 14:10 10/18/22 14:15 Temperature Pulse Rate 90 89 86 Pulse Rate [Right Pulse Oximeter] Respiratory Rate 18 20 20 Blood Pressure 108/70 104/68 112/72 Blood Pressure [Le ft Arm] Blood Pressure [Ri ght Arm] Pulse Oximetry 96 96 96 Oxygen Delivery Me thod OxyMask OxyMask OxyMask Oxygen Flow Rate 8 8 6 10/18/22 14:20 10/18/22 14:25 10/18/22 14:35 Temperature 97.7 F Pulse Rate 88 86 Pulse Rate [Right Pulse Oximeter] 82 Respiratory Rate 20 20 14 Blood Pressure 109/64 111/67 Blood Pressure [Le ft Arm] Blood Pressure [Ri ght Arm] 123/73 Pulse Oximetry 96 96 97 Oxygen Delivery Me thod OxyMask OxyMask OxyMask Oxygen Flow Rate 6 6 8 10/18/22 14:35 10/18/22 14:35 10/18/22 14:40 Temperature 97.7 F 97.7 F 97.3 F L Pulse Rate 82 Pulse Rate [Right Pulse Oximeter] 82 80 Respiratory Rate 14 14 14 Blood Pressure Blood Pressure [Le ft Arm] Blood Pressure [Ri ght Arm] 123/73 123/73 121/77 Pulse Oximetry 97 96 Oxygen Delivery Me thod OxyMask OxyMask OxyMask Oxygen Flow Rate 8 8 8 10/18/22 14:45 10/18/22 15:00 10/18/22 15:15 Temperature 97.3 F L 97.7 F 98.4 F Pulse Rate Pulse Rate [Right Pulse Oximeter] 80 82 80 Respiratory Rate 14 14 16 Blood Pressure Blood Pressure [Le ft Arm] Blood Pressure [Ri ght Arm] 121/77 120/72 122/73 Pulse Oximetry 96 95 95 Oxygen Delivery Me thod Nasal Cannula Nasal Cannula Nasal Cannula Oxygen Flow Rate 2 2 2 10/18/22 15:45 10/18/22 16:15 10/18/22 17:15 Temperature 97.8 F Pulse Rate Pulse Rate [Right Pulse Oximeter] 80 81 78 Respiratory Rate 16 16 16 Blood Pressure Blood Pressure [Le ft Arm] Blood Pressure [Ri ght Arm] 119/67 114/89 113/61 Pulse Oximetry 93 93 93 Oxygen Delivery Me thod Nasal Cannula Nasal Cannula Nasal Cannula Oxygen Flow Rate 1 1 1 10/18/22 18:15 10/18/22 19:15 10/18/22 20:15 Temperature 98.4 F 97.0 F L Pulse Rate Pulse Rate [Right Pulse Oximeter] 82 86 86 Respiratory Rate 16 16 16 Blood Pressure Blood Pressure [Le ft Arm] 106/58 L 106/58 L 107/59 L Blood Pressure [Ri ght Arm] Pulse Oximetry 95 91 91 Oxygen Delivery Me thod Nasal Cannula Nasal Cannula Nasal Cannula Oxygen Flow Rate 1 1 1 10/18/22 23:00 10/18/22 23:00 10/19/22 03:00 Temperature 98.4 F 98.2 F Pulse Rate Pulse Rate [Right Pulse Oximeter] 85 85 89 Respiratory Rate 16 16 18 Blood Pressure Blood Pressure [Le ft Arm] 96/61 109/65 Blood Pressure [Ri ght Arm] Pulse Oximetry 94 94 Oxygen Delivery Me thod Nasal Cannula Nasal Cannula Oxygen Flow Rate 1 1 Progress Note: A&P Assessment and plan (1) S/P laparoscopic-assisted sigmoidectomy: Problem details: Lap converted to open sigmoid colectomy with Bert's pouch and end colostomy for sigmoid stricture. Status: Acute Assessment and Plan: 62-year-old male s/p lap converted to open sigmoidectomy and end-colostomy POD 1. Patient is doing well overall. Will DC his Silva catheter. The colostomy appears congested with 2 small spots of dusky appearing mucosa. We will apply Nitro-Bid to those areas b.i.d. for the next 2 days to see if that helps bring more blood flow. Patient is learning about colostomy cares. Patient did have gas and stool through his stoma and I suspect that is because of previous obstruction. I do not think he has return of bowel function yet. Patient can have sips of clears for comfort for now.
[2022-10-19 15:00] VITALS: BP 120/72; PULSE 99; RESP 16; TEMP 36.9; O2SAT 91
--- NOTE | 2022-10-19 15:34 | PC.NURSE ---
shift note: abd pain at incision site 5-6. Pt medicated with dilaudid x3 with relief of pain to 310. Pt states he passed flatus in ostomy x2. Stoma purplish in color an moist. Ostomy site cleaned and changed with surgeon this a.m. Drsg reapplied to vertical abd incision. jen to vertical abd incision c/d/i. Pt up to recliner for 4 hrs. pt ambulated with 1/sba to door x2. IV patent. sony goodrich'd @ 1100
[2022-10-19 19:00] VITALS: BP 117/72; PULSE 78; RESP 16; TEMP 36.9; O2SAT 92
[2022-10-19 20:08] LABS: Prealbumin 18.5 mg/dL (20.0-40.0)
[2022-10-19 20:32] LABS: Carcinoembryonic Antigen 1.7 ng/mL (<=3.8)
[2022-10-19 23:00] VITALS: BP 119/76; PULSE 93; RESP 16; TEMP 36.7; O2SAT 92
--- NOTE | 2022-10-19 23:44 | PC.NURSE ---
Patient taking in some ice chips. Denies nausea. 75 mL of liquid brown stool emptied from ostomy bag. Bowel sounds are hypoactive. Midline abdomnial dressing is clean dry and intact. Ostomy appliance is intact with no appearance of leaking. Bag removed and xerofoam/nitro paste applied. Ostomy is dusky/dark purple in appearance. Pt receiviing Dilaudid PRN for pain. Up in the [place] this evening for walk.
[2022-10-20] MEDS: HYDROmorphone 0.5 mg/0.5 ml inj IVP ×5 (02:02→22:28)
[2022-10-20] MEDS: ONDANSETRON 2 MG/ML inj 4 MG IVP ×2 (02:21→06:52)
[2022-10-20 02:26] VITALS: BP 113/61; BP 132/80; PULSE 88; RESP 16; TEMP 36.7; O2SAT 90
[2022-10-20] MEDS: LACTATED RINGERS 1000 ML 1,000 ML 100 ML IV ×2 (04:36→16:12)
--- NOTE | 2022-10-20 05:30 | PC.NURSE ---
[id number]: patient up with assist X1, pain rated 5/10, meds per EMAR. abd. incision c/d/i, small amount liquid stool in ostomy.
[2022-10-20 07:45] VITALS: BP 132/94; PULSE 86; RESP 16; TEMP 36.8; O2SAT 132; O2SAT 92
--- NOTE | 2022-10-20 09:16 | PM.GSPN ---
Subjective Subjective Date Seen: 10/20/22 Interval history: 62-year-old male admitted to the hospital with diverticulum sigmoid stricture s/p exploratory laparotomy open sigmoidectomy. His pain is controlled with pain medications. He had an episode of nausea but no vomiting. He had bowel movements through his ostomy. He ambulated multiple times yesterday. Urinated without difficulties. Exam Narrative: Exam Narrative: Abdomen soft, minimally distended, tender to palpation in the right side but not on the left. Colostomy is pinking up with 2 areas mucosa that has necrotic appearance. This is laterally and most medially. Small amount of stool was noted in the ostomy bag. Const: Vital Signs, click to edit/add: Vital Signs - 24 hr 10/19/22 11:00 10/19/22 15:00 10/19/22 15:00 Temperature 98.5 F 98.5 F Pulse Rate [Right Pulse Oximeter] 78 99 Respiratory Rate 16 16 16 Blood Pressure [Le ft Arm] 114/78 120/72 Blood Pressure [Ri ght Arm] Pulse Oximetry 93 91 91 Oxygen Delivery Me thod Nasal Cannula Nasal Cannula Nasal Cannula Oxygen Flow Rate 0.5 1 1 10/19/22 15:00 10/19/22 19:00 10/19/22 23:00 Temperature 98.4 F 98.1 F Pulse Rate [Right Pulse Oximeter] 99 78 93 Respiratory Rate 16 16 16 Blood Pressure [Le ft Arm] 117/72 119/76 Blood Pressure [Ri ght Arm] Pulse Oximetry 92 92 Oxygen Delivery Me thod Nasal Cannula Nasal Cannula Oxygen Flow Rate 1 1 10/19/22 23:00 10/19/22 23:00 10/20/22 02:26 Temperature 98.1 F Pulse Rate [Right Pulse Oximeter] 93 88 Respiratory Rate 16 16 16 Blood Pressure [Le ft Arm] 132/80 Blood Pressure [Ri ght Arm] 113/61 Pulse Oximetry 92 90 Oxygen Delivery Me thod Nasal Cannula Nasal Cannula Oxygen Flow Rate 1 1 Progress Note: A&P Assessment and plan (1) S/P laparoscopic-assisted sigmoidectomy: Status: Acute Assessment and Plan: 62-year-old male s/p Lap converted to open sigmoid colectomy with Bert's pouch and end colostomy for sigmoid stricture. Patient is doing well. We can advance his diet to sips of clears. I discussed with the patient that if he feels nauseated, he should slow down with his diet. We will continue applying Nitro-Bid to the areas of necrosis for today and stop tomorrow. I discussed with the patient that 1 of my partners will see him tomorrow for rounds.
[2022-10-20 13:40] VITALS: BP 141/82; PULSE 88; RESP 16; TEMP 36.8; O2SAT 91
[2022-10-20 16:00] VITALS: BP 130/77; PULSE 79; RESP 16; TEMP 36.6; O2SAT 93
--- NOTE | 2022-10-20 16:00 | PC.NURSE ---
shift note: pt up 1/assist ambulating in tripathi and to bathroom. pt rating abd incisional pain 5/10. pt medicated with dilaudid x1. BS absent x4. stoma purplish with 2 blackened areas to sides. emptied 100cc soft liquid urine from ostomy bag. drsg to incision and colostomy site c/d/i. Pt has clr LS throughout. Pt voiding. IV replaced to lt hand. Pt denies nausea
[2022-10-20 19:00] VITALS: BP 133/78; PULSE 89; RESP 16; TEMP 36.9; O2SAT 94
[2022-10-20 23:00] VITALS: BP 137/80; PULSE 87; PULSE 89; RESP 16; TEMP 36.9; O2SAT 91; O2SAT 92
[2022-10-21] MEDS: LACTATED RINGERS 1000 ML 1,000 ML 100 ML IV ×3 (02:33→21:47)
[2022-10-21 03:00] VITALS: PULSE 76; RESP 14; O2SAT 91
--- NOTE | 2022-10-21 06:46 | PC.NURSE ---
Shift note: Surgical dressing is C/D/I, minimal amount of brown output in stoma, no gas. Pain treated per eMAR per pt request. Voiding, ambulated in the hallway before bed
[2022-10-21 07:00] VITALS: BP 143/79; PULSE 85; RESP 18; TEMP 36.9; O2SAT 93
--- NOTE | 2022-10-21 11:17 | P.GSPN_ITS ---
Subjective Subjective Date Seen: 10/21/22 Interval history: Patient is doing well this morning. Per his she notes that he has more energy and better color. He does report difficulty sleeping last night secondary to abdominal pain and a blowout of his colostomy bag. He has had some stool, denies any gas within the bag. Has been burping quite a bit. Denies any nausea or vomiting. Does not have much of an appetite. Exam Narrative: Exam Narrative: Gen: alert and oriented, lying comfortably in bed. Resp: equal breath rise, maintained on room air CV: RRR Abdomen: soft, appropriately tender over incision sites. [place] in midline incision c/d/i. Stoma in place, stool within bag and obscuring the mucosa of the stoma. Const: Vital Signs, click to edit/add: Vital Signs - 24 hr 10/20/22 13:40 10/20/22 16:00 10/20/22 16:00 Temperature 98.2 F Pulse Rate [Right Pulse Oximeter] 88 79 Respiratory Rate 16 16 16 Blood Pressure [Le ft Arm] Blood Pressure [Ri ght Arm] 141/82 H Pulse Oximetry 91 93 Oxygen Delivery Me thod Room Air Room Air 10/20/22 16:00 10/20/22 19:00 10/20/22 23:00 Temperature 97.9 F 98.5 F Pulse Rate [Right Pulse Oximeter] 79 89 89 Respiratory Rate 16 16 16 Blood Pressure [Le ft Arm] 130/77 133/78 Blood Pressure [Ri ght Arm] Pulse Oximetry 93 94 Oxygen Delivery Me thod Room Air Room Air 10/20/22 23:00 10/20/22 23:00 10/21/22 03:00 Temperature 98.5 F Pulse Rate [Right Pulse Oximeter] 87 76 Respiratory Rate 16 16 14 Blood Pressure [Le ft Arm] Blood Pressure [Ri ght Arm] 137/80 Pulse Oximetry 92 91 91 Oxygen Delivery Me thod Room Air Room Air Room Air 10/21/22 07:00 10/21/22 07:00 10/21/22 07:00 Temperature 98.5 F Pulse Rate [Right Pulse Oximeter] 85 85 Respiratory Rate 18 18 Blood Pressure [Le ft Arm] Blood Pressure [Ri ght Arm] 143/79 H Pulse Oximetry 93 93 Oxygen Delivery Me thod Room Air Room Air Labs/Imaging Labs Labs: No new labs. Imaging Imaging: No new imaging. Progress Note: A&P Assessment and plan (1) S/P laparoscopic-assisted sigmoidectomy: Status: Acute Assessment and Plan: 62-year-old male s/p Lap converted to open sigmoid colectomy with Bert's pouch and end colostomy for sigmoid stricture. Patient does have some stool within bag, but no gas. Given his persistent burping and poor appetite will hold off on advancing diet and recommend continuing with clear liquids. Encourage ambulation. Will evaluate pain medici dannielle and maximize non narcotics as much as possible.
[2022-10-21] MEDS: KETOROLAC 15 MG/ML inj IVP ×2 (11:57→18:17)
[2022-10-21] MEDS: ACETAMINOPHEN 1,000 MG/100 ML INJ 1000 MG IVPB (12:34)
--- NOTE | 2022-10-21 13:41 | PC.NURSE ---
End of Shift Note: Patient has been up and ambulating. Is belching a lot. Is having output in his ostomy. This am the appliance leaked and was changed. So far it has not leaked since it was changed. Last time I looked bag was only approximately 1/4 full. Received a dose of toradol which appears to have helped his pain along with a tylenol infusion. Will continue to monitor has not taken in much orally. Will continue to monitor.
[2022-10-21 15:00] VITALS: BP 127/74; PULSE 83; RESP 16; RESP 18; TEMP 36.8; O2SAT 94
[2022-10-21 19:00] VITALS: BP 123/66; PULSE 80; RESP 16; TEMP 36.9; O2SAT 93
--- NOTE | 2022-10-21 22:37 | PC.NURSE ---
End of Shift: Patient pleasant and cooperative. Afebrile. Rating pain 2/10 and PRN Toradol given x1. Up to bathroom and walking in hallway with SBA. Ostomy changed x3 d/t leaking, bag was mostly empty each time but had a formed piece of stool come through stoma with liquid stool around it. Taking in minimal ice chips, denies nausea.
[2022-10-21 23:55] VITALS: BP 132/78; PULSE 79; RESP 20; TEMP 36.8; O2SAT 93
[2022-10-22] MEDS: SODIUM CHLORIDE 0.9 % (FLUSH) 10 ML SYRINGE 5 ML IVF ×2 (02:49→10:07)
[2022-10-22] MEDS: KETOROLAC 15 MG/ML inj IVP ×3 (02:49→15:55)
[2022-10-22 03:00] VITALS: BP 129/93; PULSE 79; RESP 18; TEMP 36.7; O2SAT 97
[2022-10-22 07:00] VITALS: BP 140/78; PULSE 84; RESP 18; TEMP 36.8; O2SAT 95
--- NOTE | 2022-10-22 07:49 | PC.NURSE ---
END OF SHIFT NOTE: PT IS PLEASANT AND COOPERATIVE WITH CARES. VSS ON RA; AFEBRILE. PT DENIES CP, SOB, N/V. LOOSE, BROWN STOOL FROM OSTOMY. MIDLINE INCISION AND LAP SITES ARE C/D/I. PT AMBULATES WITH SBA.
[2022-10-22] MEDS: LACTATED RINGERS 1000 ML 1,000 ML 100 ML IV ×2 (10:07→17:42)
[2022-10-22 11:00] VITALS: BP 122/86; PULSE 83; RESP 16; TEMP 36.8; O2SAT 95
--- NOTE | 2022-10-22 12:29 | P.GSPN_ITS ---
Subjective Subjective Date Seen: 10/22/22 Interval history: Patient is doing very well this morning. He did have some pain last night, this was controlled with Toradol. He has continued to have stool output from his ostomy and tolerated clear liquids this morning. Denies any nausea or vomiting. No acute concerns. Exam Narrative: Exam Narrative: General: Alert and oriented, no acute distress Abdomen: Soft, nontender and nondistended. Midline incision with jen in place clean/dry/intact. No concern for infection. Left-sided ostomy with stool within bag. Const: Vital Signs, click to edit/add: Vital Signs - 24 hr 10/21/22 15:00 10/21/22 15:00 10/21/22 15:00 Temperature 98.2 F Pulse Rate [Apical ] Pulse Rate [Right Pulse Oximeter] 83 83 Respiratory Rate 18 16 Blood Pressure [Le ft Arm] Blood Pressure [Ri ght Arm] 127/74 Pulse Oximetry 94 94 Oxygen Delivery Me thod Room Air Room Air 10/21/22 19:00 10/21/22 23:55 10/21/22 23:55 Temperature 98.5 F Pulse Rate [Apical ] Pulse Rate [Right Pulse Oximeter] 80 79 Respiratory Rate 16 20 20 Blood Pressure [Le ft Arm] Blood Pressure [Ri ght Arm] 123/66 Pulse Oximetry 93 93 Oxygen Delivery Me thod Room Air Room Air 10/21/22 23:55 10/22/22 03:00 10/22/22 07:00 Temperature 98.2 F 98.1 F 98.2 F Pulse Rate [Apical ] 84 Pulse Rate [Right Pulse Oximeter] 79 79 Respiratory Rate 20 18 18 Blood Pressure [Le ft Arm] 140/78 H Blood Pressure [Ri ght Arm] 132/78 129/93 H 140/78 H Pulse Oximetry 93 97 95 Oxygen Delivery Me thod Room Air Room Air Room Air 10/22/22 07:00 Temperature Pulse Rate [Apical ] Pulse Rate [Right Pulse Oximeter] Respiratory Rate Blood Pressure [Le ft Arm] Blood Pressure [Ri ght Arm] Pulse Oximetry 95 Oxygen Delivery Me thod Room Air Progress Note: A&P Assessment and plan (1) S/P laparoscopic-assisted sigmoidectomy: Status: Acute Assessment and Plan: 62-year-old male s/p Lap converted to open sigmoid colectomy with Bert's pouch and end colostomy for sigmoid stricture. Ostomy is working and patient tolerating clear liquids. Will advance diet as tolerated today. He has been getting ostomy Education. Ambulating without di fficulty. Anticipate discharge tomorrow.
--- NOTE | 2022-10-22 14:37 | PC.NURSE ---
PATIENT PLEASANT AND COOPERATIVE, ALERT AND ORIENTED, UP IND WITH STEADY GAIT, REPORTING PAIN IN ABDOMEN AT REST AND WITH MOVEMENT 03/04 BEING MANAGED WITH PRN TORADOL PT DECLINING NARCOTIC MEDICATION, DRESSING TO MEDICAL ABDOMINAL INCISION CHANGED DUE TO DRESSING FALLING OFF DARSHAN PRESENT, LAP SITES INTACT WITH STERI STRIPES, OSTOMY REMAINS INTACT WITH NO DRAINAGE OUTSIDE OF OSTOMY, BAG WITH BROWN LIQUID/SOFT/SEMI FORMED BROWN STOOL, EMPTIED X2, PATIENT EDUCATED ON HOW TO EMPTY BAG AND HOW OFTEN AND GIVEN A DEMONSTRATION, PER PT WILL ATTEMPT TO EMPTY WHEN NEXT DUE, PRESENT THIS MORNING AND VERY SUPPORTIVE WITH CARES PLANS TO HELP OUT PATIENT AT HOME, UP WALKING IN HALLWAYS, TOLERATED CLD AND ADVANCED TO FULL LIQUID FOR LUNCH, ATE SOME PUDDING AND TOLERATED WELL.
[2022-10-22 16:00] VITALS: BP 119/78; PULSE 85; RESP 18; TEMP 36.8; O2SAT 96
[2022-10-22] MEDS: ACETAMINOPHEN 325 MG TABLET 650 MG PO (19:00)
[2022-10-22 19:03] VITALS: BP 132/99; PULSE 79; RESP 18; TEMP 36.8; O2SAT 94
--- NOTE | 2022-10-22 22:31 | PC.NURSE ---
Shift [id number]- Patient states he is sore today- PRN medication given with some relief. Ostomy care is reinforced and plan is made for patient to empty ostomy bag with RN guidance. Later, patient had emptied his ostomy bag fully independently and stated it went well. Dressing remains clean, dry, and intact. Bag continues to remain adhered. Patient appears to nap on and off throughout shift. While he does not state any nausea or increased pain with increased diet, he also declines to order tray tonight.
[2022-10-23 02:00] VITALS: PULSE 78; RESP 18; O2SAT 95
[2022-10-23] MEDS: KETOROLAC 15 MG/ML inj IVP (02:03)
[2022-10-23 02:07] VITALS: BP 138/87; PULSE 78; RESP 18; TEMP 36.6; O2SAT 95
[2022-10-23] MEDS: LACTATED RINGERS 1000 ML 1,000 ML 100 ML IV (03:31)
[2022-10-23 07:00] VITALS: BP 141/84; PULSE 89; RESP 16; TEMP 36.4; O2SAT 97
--- NOTE | 2022-10-23 07:28 | PC.NURSE ---
End of shift status [id number] Pt alert and oriented. Pleasant and cooperative. PRN toradol given. VSS on room air. LR at 100mL/hr. Abdominal dressing CDI. Pt emptying colostomy per self. Up independently. Pt observed resting between cares.
--- NOTE | 2022-10-23 09:13 | NUTR.NU ---
IVANN with diet education related to new colostomy. Patient admitted for SBO s/p sigmoidectomy with end colostomy. RDN visited with patient whom agreed to diet education without present (designated caregiver). He reported his was due to arrive shortly and would share this information with her. Patient was provided diet education related to new colostomy.? Education provided on following a low fiber diet for the next ~4 weeks or per MD recommendation.? Education included recommendations on following a low-fiber diet of less than 13 grams of fiber per day and included foods that are recommended and not recommended.? Verbal and written information as well as sample menus provided from [facility] on nutrition therapy for colostomy and low-fiber diet.? Patient verbalized understanding and had no questions or concerns.? RDN's contact information was provided and patient was encouraged to contact RDN with questions.
--- NOTE | 2022-10-23 12:23 | PC.NURSE ---
PATIENT DISCHARGED TO HOME WITH , PATIENT ALERT AND ORIENTED, UP AD LOULOU WITH STEADY GAIT, OSTOMY TO LEFT SIDE INTACT, PATIENT HAD BEEN EMPTYING STOOL FROM OSTOMY ON HIS OWN, CONTINUED EDUCATION DURING STAY ON OSTOMY CARE AND SENT HOME WITH EDUCATION HANDOUTS WELL, VERY SUPPORTIVE AND WILLING TO HELP PATIENT WITH OSTOMY CARES, PT TO FOLLOW UP WITH WOUND CLINIC TOMORROW, TOLERATING REGULAR DIET EATING SMALLER MORE FREQUENT MEALS, RATING PAIN ACHE 2/10 IN ABDOMEN, PATIENT AND VERBALIZED UNDERSTANDING OF DISCHARGE INFORMATION AND HAD NO FURTHER QUESTIONS AT THIS TIME, LEFT VIA WHEELCHAIR AROUND 1220, IV REMOVED AND ALL BELONGINGS SENT WITH PATIENT.
--- NOTE | 2022-10-23 12:55 | PM.DS1 ---
DS: Providers Provider Date Seen: 10/23/22 Date of admission: 10/17/22 16:37 Primary care physician: Not a Local Provider Admitting Clinician: Aiden Zhang MD Attending Physician on discharge: Aiden Zhang MD DS: Summary Hospital Course Hospital Course: Patient presented to the hospital with evidence of a colonic obstruction on CT imaging secondary to a sigmoid stricture. He was taken to the OR for an open sigmoidectomy and end colostomy. Post operatively patient did well. He did have return of bowel function and was educated on his new stoma. At the time of discharge the patient was tolerating a regular diet, pain was well controlled he was voiding independently and ambulating without difficulty. Time Spent with Patient Time attestation: Total time spent providing and/or coordinating discharge services: Exam Narrative: Exam Narrative: General: Alert and oriented, no acute distress Abdomen: Soft, nontender nondistended. Midline incision with jen in place clean/dry/intact. No concern for infection. Left-sided stoma in place with stool within bag. Const: Vital Signs, click to edit/add: Vital Signs - 24 hr 10/22/22 16:00 10/22/22 16:00 10/22/22 19:03 Temperature 98.2 F 98.3 F Pulse Rate [Apical ] 85 79 Pulse Rate [Right Pulse Oximeter] Respiratory Rate 18 18 Blood Pressure [Le ft Arm] 119/78 132/99 H Blood Pressure [Ri ght Arm] Pulse Oximetry 96 96 94 Oxygen Delivery Me thod Room Air Room Air Room Air 10/23/22 02:07 10/23/22 02:00 10/23/22 02:00 Temperature 98 F Pulse Rate [Apical ] Pulse Rate [Right Pulse Oximeter] 78 78 Respiratory Rate 18 18 18 Blood Pressure [Le ft Arm] Blood Pressure [Ri ght Arm] 138/87 Pulse Oximetry 95 95 Oxygen Delivery Me thod Room Air Room Air 10/23/22 07:00 10/23/22 07:00 Temperature 97.6 F Pulse Rate [Apical ] Pulse Rate [Right Pulse Oximeter] 89 Respiratory Rate 16 16 Blood Pressure [Le ft Arm] Blood Pressure [Ri ght Arm] 141/84 H Pulse Oximetry 97 97 Oxygen Delivery Me thod Room Air Room Air Discharge Plan Discharge Disposition: Home, Self-Care Date of Admission: 10/17/22 16:37 Attending Provider on Discharge: Jo Piña Primary Care Provider: Provider,Not a Local Condition: Unchanged Anticipated Discharge Date/Time: 10/23/22 12:32 Discharge Medications: New tramadol 50 mg tablet 50 mg PO Q8H PRN (Reason: pain) Qty: 10 0RF Discharge Orders: Discharge Order (Routine); Ordered 10/23/22 Ordered By: Jo Piña Patient Education: Tramadol (By mouth), Colostomy Care (GEN), Colostomy Creation (GEN), Bowel Resection (DC) Activity Level: No strenuous activity Activity Detail: Activity as tolerated. Avoid strenuous activity. No lifting greater than 20 lb for 6 weeks. You have jen in her midline incision. An appointment will be made to have these removed on 10/29/2022 Discharge Diet: Regular Follow Up Appointments: Justyn Bueno MD [Staff Physician] - 10/29/22 11:45 am Carmina Jo CNP [Nurse Practitioner] - 10/24/22 2:00 pm ([facility] to the [facility]. [phone] ) Forms: MyHealth Info Instructions Discharge Comments: You are okay to shower, do not soak in a bath or swim until incisions are completely healed, approximately 2 weeks.
== END 2022-10-23 12:20 | disposition home or self-care (01) | DRG 330 ==
LOC: ED 14:32 → MEDSURG 14:59
PROVIDERS: Surgery; Admitting Provider Family Medicine; Emergency Provider Emergency Medicine Emergency Medical Services; Visit Provider Family Medicine
PROC: 0DTN0ZZ Resection of Sigmoid Colon, Open Approach (ICD-10-PCS; CPT 44204; principal; 2022-10-18 08:00)
DX: K56.699 Other intestinal obstruction unspecified as to partial versus complete obstruction (principal); K91.71 Accidental puncture and laceration of a digestive system organ or structure during a digestive system procedure; K57.30 Diverticulosis of large intestine without perforation or abscess without bleeding; K56.50 Intestinal adhesions [bands], unspecified as to partial versus complete obstruction; K62.4 Stenosis of anus and rectum; R10.32 Left lower quadrant pain; R63.4 Abnormal weight loss; R11.0 Nausea
CPT/HCPCS: 00840; 36415; 64488; 71046; 74177; 76942; 80048; 80076; 81001; 82378; 84134; 85025; 87635; 88307; 93005; 99140; 99285; A9270; C9113; C9290; J0131; J0330; J1100; J1170; J1200; J1335; J1885; J2270; J2405; J2704; J3010; J3475; J3490; J7030; J7120; Q9967

== ENCOUNTER 2022-10-24 13:40 | Outpatient (CLI) | payer OTHER, SELFPAY | END 2022-10-24 13:41 | disposition home or self-care (01) | LOC: WOUND 13:40 | PROVIDERS: Visit Provider Nurse Practitioner Family | DX: Z43.3 Encounter for attention to colostomy (principal); K57.90 Diverticulosis of intestine, part unspecified, without perforation or abscess without bleeding | CPT/HCPCS: 99214 ==

== ENCOUNTER 2022-10-26 12:35 | Observation (INO) | payer OTHER, SELFPAY ==
[2022-10-26 12:50] VITALS: BP 108/64; PULSE 91; RESP 20; TEMP 35.8; O2SAT 97; BMI 29.9
--- NOTE | 2022-10-26 13:36 | CRLHL7_ITS ---
For Patients: As a result of the Century Cures Act, medical imaging exams and procedure reports are released immediately into your electronic medical record. You may view this report before your referring provider. If you have questions, please contact your health care provider. Indication: Postop vomiting fever. Technique: Noncontrast CT abdomen pelvis Comparison: CT and pelvis 10/17/2022 Findings: The heart size is normal there is no pericardial effusion. Basilar atelectasis. Tiny left effusion. Unenhanced liver gallbladder pancreas spleen unremarkable adrenal glands unremarkable. Small low-attenuation lesion left kidney incompletely assessed kidneys are unremarkable. Partial colectomy. Bert`s pouch. Prostate gland is enlarged. Air in the urinary bladder. Left lower quadrant colostomy. The colon is decompressed however there is some possible wall thickening and pericolonic inflammatory change along the colonic bowel loop just proximal to the colostomy. Dilated fluid-filled small bowel measuring up to 3.7 centimeter distal ileal bowel loops are decompressed a discrete transition point is not identified there is some mild mesenteric edema. There is a small amount of fluid in the pelvis. Normal appendix. There is also subcutaneous soft tissue stranding in the abdominal wall along the presumed right abdominal port site with some foci air. There is fluid collection or hematoma in the left subcutaneous abdominal wall. No suspicious bony lesions. Impression: 1. Dilated mid and proximal small bowel loops up to 3.7 centimeters with decompressed distal ileal bowel loops the transition point is not clearly identified. Findings could be on the basis of ileus or obstruction. 2. Partial colectomy with left lower quadrant colostomy. The colon just proximal to the colostomy site is decompressed however there is some wall thickening and some pericolonic inflammatory change which could indicate colitis. 3. 7.6 x 2.3 centimeter fluid collection in the subcutaneous abdominal wall could be hematoma or postop fluid collection. Small amount of fluid in the pelvis. Air in the urinary bladder correlate with recent instrumentation Please note that all CT scans at this facility use dose modulation, iterative reconstruction, and/or weight-based dosing when appropriate to reduce radiation dose to as low as reasonably achievable. Dictated by Lea Gurrola MD @ 10/26/2022 3:02:42 PM (Electronically Signed)
--- NOTE | 2022-10-26 13:39 | ED_ITS ---
HPI - General Adult General Time Seen by Provider: 13:39 Date Seen: 10/26/22 Chief complaint: Post Op Complication Stated complaint: Nausea and vomiting, post-op Time Seen by Provider: 10/26/22 13:23 Source: patient Mode of arrival: ambulatory Limitations: physical limitation History of Present Illness HPI narrative: Patient is a 62 year white male who had a colostomy for intestinal obstruction with Dr. Bowen and :. The patient reports yesterday he had a fever up to 103. And today no fever but feels a little nauseated, he was up this morning showered felt well and then had some nausea and lightheadedness in the kitchen today. No falls no injuries. His postoperative site is healing nicely. He has liquidy stool in his bag. No cough, no dysuria, no sore throat, no headache, no rigors. His O2 sat is 97% today and he is afebrile. He did seem to get upset the stomach by the tramadol he was prescribed Related Data Previous Rx's Medication Instructions Recorded tramadol 50 mg tablet 50 mg PO Q8H PRN pain #10 tabs 10/23/22 Allergies Allergy/AdvReac Type Severity Reaction Status Date / Time No Known Drug Allergies Allergy Verified 10/17/22 10:04 Review of Systems Status of ROS: Reports: 10 or more systems reviewed and unremarkable except as noted in History and below PFSH PFSH Surgical History History of colonoscopy S/P laparoscopic-assisted sigmoidectomy Family History Mother Multiple myeloma Father Bladder cancer Social History Narrative: He is and presents with his . He works for [employer] in [place] [employer] [place] [employer]. He lives in [place]. His , Ladi, is healthcare power of contracts attorney. Code status is full. He is a nonsmoker. He does not drink alcohol. He does not use recreational drugs Highest level of school completed/degree received: some college, no degree Smoking Status: Never smoker Do you use any of these nicotine containing products: None Second hand tobacco smoke exposure: No How often do you have a drink containing alcohol: never How often do you have six or more drinks on one occasion: Never AUDIT-C Alcohol total score: 0 Non-prescribed substance use: denies use service: No Exam Narrative: Exam Narrative: Objective: Patient is in no apparent distress Vital signs unremarkable HEENT unremarkable throat clear Neck is supple Chest is clear Heart rhythm regular without murmur Abdomen benign soft postoperative site is intact, some liquidy brown stool noted in his colostomy bag Abdomen is generally nontender no rebound or guarding. Extremities are no edema Neurologic nonfocal good peripheral perfusion noted Const: Vital Signs, click to edit/add: Vital Signs - 24 hr 10/26/22 12:50 10/26/22 14:35 Temperature 96.5 F L Pulse Rate [Pulse Oximeter] 91 84 Respiratory Rate 20 18 Blood Pressure [Le ft Upper Arm] 111/68 Blood Pressure [Ri ght Upper Arm] 108/64 Pulse Oximetry 97 95 Oxygen Delivery Me thod Room Air Room Air Course Vital Signs Vital signs: Initial Vital Signs Temperature 96.5 F L 10/26/22 12:50 Temperature Source Temporal Artery Scan 10/26/22 12:50 Pulse Rate 91 10/26/22 12:50 Respiratory Rate 20 10/26/22 12:50 Blood Pressure 108/64 10/26/22 12:50 Blood Pressure Mean 78 10/26/22 12:50 Blood Pressure Position Sitting 10/26/22 12:50 Pulse Oximetry 97 10/26/22 12:50 Oxygen Delivery Method 10/26/22 12:50 Vital Signs Temperature 96.5 F L 10/26/22 12:50 Pulse Rate 91 10/26/22 12:50 Respiratory Rate 20 10/26/22 12:50 Blood Pressure 108/64 10/26/22 12:50 Pulse Oximetry 97 10/26/22 12:50 Oxygen Delivery Method 10/26/22 12:50 Temperature 96.5 F L 10/26/22 12:50 Pulse Rate 84 10/26/22 14:35 Respiratory Rate 18 10/26/22 14:35 Blood Pressure 111/68 10/26/22 14:35 Pulse Oximetry 95 10/26/22 14:35 Oxygen Delivery Method 10/26/22 14:35 Medical Decision Making MDM Narrative Medical decision making narrative: The patient has about a week out from abdominal colostomy for obstruction. He had a fever yesterday but none today, he has nausea today. He has had mostly liquidy stool in his bag since the time of surgery. He had a fever yesterday but not today no rigors, no cough no chills. No leg swelling or edema. He has been up moving about pretty well. He has had limited p.o. intake since his surgery about a week ago. He talked to DrBryant: On the phone today and she recommended he come to the ER. At this point I think checking a CT scan unenhanced of his abdomen be appropriate as well as laboratory studies urinalysis, IV fluid, and Zofran. Will discuss with Dr.: After results are back Addendum: The patient has fairly unremarkable labs, with exception he has C diff noted on his stool sample. He appears to have an ileus versus mild obstruction, at this point I think we should admit to the hospital. Dr. Shirley has reviewed h is CT and has made these recommendations. Will discuss with hospitalist. Lab Data Labs: Lab Results 10/26/22 10/26/22 10/26/22 Range/Units 13:36 13:38 14:00 WBC 5.04 (4.50-11.00) K/uL RBC 4.34 (4.30-5.90) m/uL Hgb 12.8 L (13.5-17.5) gm/dL Hct 38.0 (37.0-53.0) % MCV 88 (80-100) fL MCH 30 (26-34) pg MCHC 34 (32-36) gm/dL RDW Coeff of Joie 13.0 (11.5-15.5) % Plt Count 363 (140-440) K/uL Neut % (Auto) 63.5 (42.0-72.0) % Lymph % (Auto) 19.2 L (20-44) % [place] % (Auto) 14.5 H (0.0-11.0) % Eos % (Auto) 2.2 (0.0-7.0) % Baso % (Auto) 0.2 (0.0-3.0) % Neut # (Auto) 3.20 (1.7-7.0) K/uL Lymph # (Auto) 1.00 (0.90-2.90) K/uL [place] # (Auto) 0.70 (0.00-0.90) K/UL Eos # (Auto) 0.11 (0.00-0.50) K/uL Baso # (Auto) 0.01 (0.00-0.30) K/uL Sodium (135-149) mmol/L Potassium (3.6-5.1) mmol/L Chloride (96-114) mmol/L Carbon Dioxide (20-32) mmol/L BUN (7-30) mg/dL Creatinine (0.5-1.5) mg/dL Estimated Creat Clear Estimated GFR ml/min Glucose (60-115) mg/dL Calcium (8.4-10.6) mg/dL Total Bilirubin (0.1-1.5) mg/dL Direct Bilirubin (0.0-0.5) mg/dL AST (12-35) U/L ALT (4-50) U/L Alkaline Phosphatase (40-150) U/L Total Protein (6.0-8.3) g/dL Albumin (3.3-5.0) g/dL Amylase (18-89) U/L Stl C.difficile Tox PCR POSITIVE A* (Negative) St C. diff Tox Epid 027 PRESUMPTIVE NEGATIVE (Negative) SARS-CoV-2 (PCR) Negative SARS-CoV-2 (Negative) Influenza Type A (PCR) Negative PCR FLU A (Negative) Influenza Type B (PCR) Negative PCR FLU B (Negative) RSV (PCR) Negative PCR RSV (Negative) 10/26/22 10/26/22 Range/Units 14:00 14:00 WBC (4.50-11.00) K/uL RBC (4.30-5.90) m/uL Hgb (13.5-17.5) gm/dL Hct (37.0-53.0) % MCV (80-100) fL MCH (26-34) pg MCHC (32-36) gm/dL RDW Coeff of Joie (11.5-15.5) % Plt Count (140-440) K/uL Neut % (Auto) (42.0-72.0) % Lymph % (Auto) (20-44) % [place] % (Auto) (0.0-11.0) % Eos % (Auto) (0.0-7.0) % Baso % (Auto) (0.0-3.0) % Neut # (Auto) (1.7-7.0) K/uL Lymph # (Auto) (0.90-2.90) K/uL [place] # (Auto) (0.00-0.90) K/UL Eos # (Auto) (0.00-0.50) K/uL Baso # (Auto) (0.00-0.30) K/uL Sodium 137 (135-149) mmol/L Potassium 3.3 L (3.6-5.1) mmol/L Chloride 102 (96-114) mmol/L Carbon Dioxide 28 (20-32) mmol/L BUN 15 (7-30) mg/dL Creatinine 0.6 (0.5-1.5) mg/dL Estimated Creat Clear 84.34 Estimated GFR 108 ml/min Glucose 101 (60-115) mg/dL Calcium 8.3 L (8.4-10.6) mg/dL Total Bilirubin 1.3 (0.1-1.5) mg/dL Direct Bilirubin 0.9 H (0.0-0.5) mg/dL AST 32 (12-35) U/L ALT 47 (4-50) U/L Alkaline Phosphatase 63 (40-150) U/L Total Protein 5.9 L (6.0-8.3) g/dL Albumin 3.2 L (3.3-5.0) g/dL Amylase 31 (18-89) U/L Stl C.difficile Tox PCR (Negative) St C. diff Tox Epid 027 (Negative) SARS-CoV-2 (PCR) (Negative) Influenza Type A (PCR) (Negative) Influenza Type B (PCR) (Negative) RSV (PCR) (Negative) Discharge Plan Discharge Clinical Impression: Postoperative nausea Prescriptions: No Action tramadol 50 mg tablet 50 mg PO Q8H PRN (Reason: pain) Qty: 10 0RF Follow Up/Referrals: Provider,Not a Local [Primary Care Provider] -
[2022-10-26 14:17] LABS: Basophils Absolute Auto 0.01 K/uL (0.00-0.30); Basophils Percent Auto 0.2 % (0.0-3.0); Eosinophils Absolute Auto 0.11 K/uL (0.00-0.50); Eosinophils Percent Auto 2.2 % (0.0-7.0); Hemoglobin* 12.8 gm/dL (13.5-17.5); Immature Granulocytes Abs Auto 0.02 K/uL (0.00-0.30); Immature Granulocytes Pct Auto 0.4 %; Lymphocytes Percent Auto 19.2 % (20-44); Mean Corpuscular HGB Conc 34 gm/dL (32-36); Mean Corpuscular Hemoglobin 30 pg (26-34); Mean Corpuscular Volume 88 fL (80-100); Monocytes Percent Auto 14.5 % (0.0-11.0); Neutrophils Percent Auto 63.5 % (42.0-72.0); Platelet Count* 363 K/uL (140-440); Red Blood Count 4.34 m/uL (4.30-5.90); Slide Review Reflex No; White Blood Count* 5.04 K/uL (4.50-11.00)
[2022-10-26 14:31] LABS: Chloride* 102 mmol/L (96-114); Potassium* 3.3 mmol/L (3.6-5.1); Sodium* 137 mmol/L (135-149)
[2022-10-26 14:32] LABS: Albumin* 3.2 g/dL (3.3-5.0)
[2022-10-26 14:34] LABS: Amylase* 31 U/L (18-89); Blood Urea Nitrogen* 15 mg/dL (7-30); Carbon Dioxide* 28 mmol/L (20-32); Creatinine* 0.6 mg/dL (0.5-1.5); Est. Creatinine Clearance* 84.34; Estimated Glomerular Filt Rate 108 ml/min
[2022-10-26 14:35] VITALS: BP 111/68; PULSE 84; RESP 18; O2SAT 95
[2022-10-26 14:35] LABS: Alanine Aminotransferase* 47 U/L (4-50); Alkaline Phosphatase* 63 U/L (40-150); Aspartate Amino Transferase* 32 U/L (12-35); Bilirubin Direct* 0.9 mg/dL (0.0-0.5); Bilirubin Total* 1.3 mg/dL (0.1-1.5); Calcium* 8.3 mg/dL (8.4-10.6); Glucose* 101 mg/dL (60-115); Total Protein* 5.9 g/dL (6.0-8.3)
[2022-10-26] MEDS: ONDANSETRON 2 MG/ML inj 4 MG IVP (14:39)
[2022-10-26] MEDS: 0.9 % SODIUM CHLORIDE 500 ML 500 ML IV (14:39)
[2022-10-26 15:03] LABS: PCR FLU A Negative PCR FLU A (Negative); PCR FLU B Negative PCR FLU B (Negative); PCR RSV Negative PCR RSV (Negative)
[2022-10-26 15:04] LABS: SARS PCR* Negative SARS-CoV-2 (Negative)
[2022-10-26 15:04] LABS: CDIFFEPI 027 PRESUMPTIVE NEGATIVE (Negative)
[2022-10-26 15:19] LABS: C.Difficile POSITIVE (Negative)
[2022-10-26] MEDS: VANCOMYCIN 125 MG CAPSULE PO ×2 (16:43→21:28)
--- NOTE | 2022-10-26 16:55 | ED.NURSE ---
transferred to [address] [place] [address]/. report was called to feng lepe rn.
[2022-10-26] MEDS: LACTATED RINGERS 1000 ML 1,000 ML 125 ML IV ×2 (17:30→23:54)
[2022-10-26 17:45] VITALS: BP 113/66; PULSE 84; RESP 16; TEMP 36.1; O2SAT 98; BMI 29.8
--- NOTE | 2022-10-26 18:11 | PM.GSHP ---
History of Present Illness History of Present Illness Date Seen: 10/26/22 Chief complaint: Nausea and vomiting, post-op Narrative: Brigido Kay is a 62 year old male presented to the emergency department with nausea, vomiting and fevers. 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 He does have an end colostomy in place. In talking with his since leaving the hospital early last week he has had very little energy. He has also had very poor p.o. intake over the last 2 days has had nausea and vomiting with any p.o. intake. He does continue to have very liquidy stools from his ostomy bag. Yesterday he also had a fever of 103, this was controlled with Tylenol. He presented to the emergency department. Labs are within normal limits. Cultures are positive for C diff colitis. A CT scan does show some mild dilation of the small bowel obstruction, consistent with a postoperative ileus. There was also a small fluid collection just below the stoma, consistent with hematoma versus postoperative fluid. Review of Systems Status of ROS: Reports: 10 or more systems reviewed and unremarkable except as noted in History and below PFSH PFSH Surgical History History of colonoscopy S/P laparoscopic-assisted sigmoidectomy Family History Mother Multiple myeloma Father Bladder cancer Social History Narrative: He is and presents with his . He works for [employer] in [place]. He lives in [place]. His , Ladi, is healthcare power of financial aid officer. Code status is full. He is a nonsmoker. He does not drink alcohol. He does not use recreational drugs Highest level of school completed/degree received: some college, no degree Smoking Status: Never smoker Do you use any of these nicotine containing products: None Second hand tobacco smoke exposure: No How often do you have a drink containing alcohol: never How often do you have six or more drinks on one occasion: Never AUDIT-C Alcohol total score: 0 Non-prescribed substance use: denies use service: No Meds Home Medications and Allergies Allergies Allergy/AdvReac Type Severity Reaction Status Date / Time No Known Drug Allergies Allergy Verified 10/17/22 10:04 Exam Narrative: Exam Narrative: General: Alert and oriented, no acute distress Respiratory: Equal breath rise bilaterally, maintained on room air CV: Regular rhythm rate, well perfused Abdomen: Soft, nontender nondistended. Midline incision with jen in place and dressing over top clean/dry/intact. Left-sided stoma in place with liquidy stool within back. No surrounding erythema or induration, no tenderness around this stoma. Const: Vital Signs, click to edit/add: Vital Signs - 24 hr 10/26/22 12:50 10/26/22 14:35 Temperature 96.5 F L Pulse Rate [Pulse Oximeter] 91 84 Respiratory Rate 20 18 Blood Pressure [Le ft Upper Arm] 111/68 Blood Pressure [Ri ght Upper Arm] 108/64 Pulse Oximetry 97 95 Oxygen Delivery Me thod Room Air Room Air Results Results Abdomen CT scan report/results: report reviewed and image reviewed Assessment and Plan Assessment and plan (1) C. difficile colitis: Status: Acute Plan Patient is a 62-year-old male status post open sigmoidectomy with end colostomy and new diagnosis of C diff colitis. Vital signs stable, no leukocytosis. Afebrile since admission. Significant amount of liquidy stool within ostomy bag, which patient reports as foul smelling. CT scan was reviewed by myself, evidence of moderate dilation to the small bowel likely secondary to an ileus. There is also small fluid collection just below the stoma, clinically the patient has no overlying redness or tenderness to this area on exam, this likely represents a hematoma versus postoperative fluid collection with no concern for abscess or infection at this time. -oral vancomycin q.i.d. -clear liquids, IV fluids -Tylenol, ibuprofen and tramadol as needed for pain control -will trend fever curve overnight -repeat labs in morning
[2022-10-26 19:56] VITALS: TEMP 36.1
--- NOTE | 2022-10-26 22:17 | PC.NURSE ---
1730 arrived to med surg room 279 via w/c. , Ladi supported and present. discussed Clos. Diff. and precautions to take here and at home. pt denied pain or nausea on admission. up ad [place]. stoma site looks normal. liquid smelling stool. pt emptied on his own x2. voided also. steve cl liq. Dr. Piña here to see pt. pt poss discharged tomorrow if to reg diet in am.
[2022-10-26 23:00] VITALS: BP 118/73; PULSE 86; RESP 16; TEMP 36.8; O2SAT 93
[2022-10-27 02:09] VITALS: BP 112/73; PULSE 89; RESP 18; TEMP 36.6; O2SAT 97
[2022-10-27 02:17] LABS: Appearance Urine Cloudy (Clear); Bilirubin Urine 2+ (Negative); Blood Urine Negative (Negative); Color Urine Yellow (Yellow); Glucose Urine Negative (Negative); Ketones Urine 4+ (Negative); Leukocyte Esterase Urine Negative (Negative); Nitrite Urine Negative (Negative); Protein Urine 1+ (Negative); Specific Gravity Urine 1.025 (1.000-1.030); pH Urine 6.5 (5.0-8.5)
[2022-10-27 02:24] LABS: Amorphous Sediment Urine Moderate; Bacteria Urine Moderate; Mucus Urine Moderate; RBC Urine 0-2 (0-2); Squamous Epithelial Cell Urine Moderate (None-Few)
--- NOTE | 2022-10-27 04:31 | PC.NURSE ---
[id number]: Patient pleasant and cooperative. Afebrile. Denies pain. Tolerating clears. Denies N/V. BS active. Ostomy bag draining liquid stools and managed independently by patient. Independently ambulating in room.
[2022-10-27 07:00] VITALS: BP 120/78; PULSE 87; RESP 18; TEMP 36.8; O2SAT 96
[2022-10-27] MEDS: LACTATED RINGERS 1000 ML 1,000 ML 125 ML IV (08:03)
[2022-10-27 08:50] LABS: Basophils Absolute Auto 0.01 K/uL (0.00-0.30); Basophils Percent Auto 0.2 % (0.0-3.0); Eosinophils Absolute Auto 0.14 K/uL (0.00-0.50); Eosinophils Percent Auto 2.9 % (0.0-7.0); Hematocrit 36.1 % (37.0-53.0); Hemoglobin* 11.9 gm/dL (13.5-17.5); Immature Granulocytes Abs Auto 0.03 K/uL (0.00-0.30); Immature Granulocytes Pct Auto 0.6 %; Lymphocytes Percent Auto 19.3 % (20-44); Mean Corpuscular HGB Conc 33 gm/dL (32-36); Mean Corpuscular Hemoglobin 29 pg (26-34); Mean Corpuscular Volume 89 fL (80-100); Monocytes Percent Auto 12.2 % (0.0-11.0); Neutrophils Absolute Auto 3.08 K/uL (1.7-7.0); Neutrophils Percent Auto 64.8 % (42.0-72.0); Platelet Count* 370 K/uL (140-440); RDW Coefficient of Variation % 13.1 % (11.5-15.5); Red Blood Count 4.06 m/uL (4.30-5.90); White Blood Count* 4.76 K/uL (4.50-11.00)
[2022-10-27 08:53] LABS: Slide Review Reflex No
[2022-10-27 09:00] LABS: Chloride* 103 mmol/L (96-114); Sodium* 137 mmol/L (135-149)
[2022-10-27 09:03] LABS: Blood Urea Nitrogen* 11 mg/dL (7-30); Carbon Dioxide* 26 mmol/L (20-32); Creatinine* 0.6 mg/dL (0.5-1.5); Est. Creatinine Clearance* 81.91; Estimated Glomerular Filt Rate 108 ml/min
[2022-10-27 09:04] LABS: Glucose* 89 mg/dL (60-115)
[2022-10-27 09:06] LABS: Potassium* 2.9 mmol/L (3.6-5.1)
[2022-10-27] MEDS: VANCOMYCIN 125 MG CAPSULE PO ×2 (09:19→13:15)
[2022-10-27] MEDS: POTASSIUM CHLORIDE 10 MEQ CAPSULE ER 40 MEQ PO (09:36)
--- NOTE | 2022-10-27 10:03 | PM.GSPN ---
Subjective Subjective Date Seen: 10/27/22 Interval history: Patient is doing well this morning. He was able to rest last night. He denies any abdominal pain. Continues to have a copious amount of liquidy stools. No fevers or chills. Is going to try a regular diet today. Exam Narrative: Exam Narrative: General: Alert and oriented, no acute distress Abdomen: Soft, nontender nondistended. Ostomy in place with liquidy stools. Midline incision with jen in place, jen were removed at bedside with incision healing well. Const: Vital Signs, click to edit/add: Vital Signs - 24 hr 10/26/22 12:50 10/26/22 14:35 10/26/22 17:45 Temperature 96.5 F L 97 F L Pulse Rate [Left B rachial] 84 Pulse Rate [Pulse Oximeter] 91 84 Respiratory Rate 20 18 16 Blood Pressure [Le ft Arm] 113/66 Blood Pressure [Le ft Upper Arm] 111/68 Blood Pressure [Ri ght Upper Arm] 108/64 Pulse Oximetry 97 95 98 Oxygen Delivery Me thod Room Air Room Air Room Air 10/26/22 17:45 10/26/22 19:56 10/26/22 23:00 Temperature 97 F L 98.2 F Pulse Rate [Left B rachial] 86 Pulse Rate [Pulse Oximeter] Respiratory Rate 16 16 Blood Pressure [Le ft Arm] 118/73 Blood Pressure [Le ft Upper Arm] Blood Pressure [Ri ght Upper Arm] Pulse Oximetry 98 93 Oxygen Delivery Me thod Room Air Room Air 10/27/22 02:09 Temperature 97.9 F Pulse Rate [Left B rachial] 89 Pulse Rate [Pulse Oximeter] Respiratory Rate 18 Blood Pressure [Le ft Arm] 112/73 Blood Pressure [Le ft Upper Arm] Blood Pressure [Ri ght Upper Arm] Pulse Oximetry 97 Oxygen Delivery Me thod Room Air Labs/Imaging Labs Labs: Potassium low at 2.9 Progress Note: A&P Assessment and plan (1) C. difficile colitis: Status: Acute Assessment and Plan: Patient is hospitalized for postoperative C diff colitis. He was started on oral vancomycin, which he is tolerating. Vital signs stable and afebrile overnight. Will try a regular diet today. Hypokalemia on labs this morning. 40 mEq of replacement was ordered. Will plan to recheck this afternoon. Anticipate discharge later today.
[2022-10-27 11:00] VITALS: BP 118/68; PULSE 84; RESP 18; TEMP 36.8; O2SAT 95
[2022-10-27 15:22] LABS: Potassium* 3.2 mmol/L (3.6-5.1)
--- NOTE | 2022-10-27 15:52 | PC.NURSE ---
Discharge: Patient pleasant and cooperative.?Afebrile.?Denies pain, VSS, denies N/V/SOB.?Tolerating a reg. diet.?BS active.?Ostomy bag draining liquid stools and managed independently by patient, appliance needed to be changed x2 today d/t leaking.?Educated and Pt. on how to do an ostomy bag and appliance change. Independently ambulating in room and voiding well. IV removed from right wrist intact. Discharge instructions given and verbalized understanding. Patient discharged at 1615 accompanied by .
== END 2022-10-27 16:15 | disposition home or self-care (01) ==
LOC: ED 13:41 → MEDSURG 17:13
PROVIDERS: Admitting Provider Surgery; Emergency Provider Family Medicine; Visit Provider Surgery
DX: A04.72 Enterocolitis due to Clostridium difficile, not specified as recurrent (principal); Z43.3 Encounter for attention to colostomy; K91.89 Other postprocedural complications and disorders of digestive system; R11.0 Nausea; E87.6 Hypokalemia
CPT/HCPCS: 36415; 74176; 80048; 80076; 81001; 82150; 84132; 85025; 87086; 87493; 87502; 87634; 87635; 96361; 96374; 99284; A9270; G0378; J2405; J7120

== ENCOUNTER 2022-10-30 11:12 | Outpatient (CLI) | payer OTHER, SELFPAY | END 2022-10-30 11:13 | disposition home or self-care (01) | LOC: WOUND 11:12 | PROVIDERS: Visit Provider Nurse Practitioner Family | DX: Z43.3 Encounter for attention to colostomy (principal); K57.90 Diverticulosis of intestine, part unspecified, without perforation or abscess without bleeding | CPT/HCPCS: 99213 ==

== ENCOUNTER 2022-11-07 13:41 | Outpatient (CLI) | payer OTHER, SELFPAY | END 2022-11-07 13:42 | disposition home or self-care (01) | LOC: WOUND 13:41 | PROVIDERS: Visit Provider Nurse Practitioner Family | DX: Z43.3 Encounter for attention to colostomy (principal) | CPT/HCPCS: 99213 ==

== ENCOUNTER 2022-11-14 13:18 | Outpatient (CLI) | payer OTHER, SELFPAY | END 2022-11-14 13:19 | disposition home or self-care (01) | LOC: WOUND 13:18 | PROVIDERS: Visit Provider Nurse Practitioner Family | DX: Z43.3 Encounter for attention to colostomy (principal) | CPT/HCPCS: 99213 ==

== ENCOUNTER 2022-11-21 13:15 | Outpatient (CLI) | payer OTHER, SELFPAY | END 2022-11-21 13:16 | disposition home or self-care (01) | LOC: WOUND 13:15 | PROVIDERS: Visit Provider Nurse Practitioner Family | DX: Z43.3 Encounter for attention to colostomy (principal); L24.B0 Irritant contact dermatitis related to unspecified stoma or fistula | CPT/HCPCS: 97597; 99213 ==

== ENCOUNTER 2022-11-27 10:52 | Outpatient (CLI) | payer OTHER, SELFPAY | END 2022-11-27 10:53 | disposition home or self-care (01) | LOC: WOUND 10:52 | PROVIDERS: Visit Provider Nurse Practitioner Family | DX: Z43.3 Encounter for attention to colostomy (principal); L24.B3 Irritant contact dermatitis related to fecal or urinary stoma or fistula | CPT/HCPCS: 99213 ==

== ENCOUNTER 2022-11-28 13:26 | Outpatient (CLI) | payer OTHER, SELFPAY | END 2022-11-28 13:27 | disposition home or self-care (01) | LOC: WOUND 13:26 | PROVIDERS: Visit Provider Nurse Practitioner Family | DX: Z43.3 Encounter for attention to colostomy (principal); L24.B3 Irritant contact dermatitis related to fecal or urinary stoma or fistula | CPT/HCPCS: 99213 ==

== ENCOUNTER 2022-12-05 13:15 | Outpatient (CLI) | payer OTHER, SELFPAY | END 2022-12-05 13:16 | disposition home or self-care (01) | LOC: WOUND 13:15 | PROVIDERS: Visit Provider Nurse Practitioner Family | DX: Z43.3 Encounter for attention to colostomy (principal) | CPT/HCPCS: 99212 ==

== ENCOUNTER 2022-12-12 13:20 | Outpatient (CLI) | payer OTHER, SELFPAY | END 2022-12-12 13:21 | disposition home or self-care (01) | LOC: WOUND 13:20 | PROVIDERS: Visit Provider Nurse Practitioner Family | DX: Z43.3 Encounter for attention to colostomy (principal) | CPT/HCPCS: 99212 ==

== ENCOUNTER 2022-12-26 13:00 | Outpatient (CLI) | payer OTHER, SELFPAY | END 2022-12-26 13:40 | disposition home or self-care (01) | LOC: WOUND 01-15 16:26 | PROVIDERS: Visit Provider Nurse Practitioner Family | DX: Z43.3 Encounter for attention to colostomy (principal) | CPT/HCPCS: 99213 ==

== ENCOUNTER 2023-01-16 12:50 | Outpatient (CLI) | payer OTHER, SELFPAY | END 2023-01-16 12:51 | disposition home or self-care (01) | LOC: WOUND 12:50 | PROVIDERS: Visit Provider Nurse Practitioner Family | DX: Z43.3 Encounter for attention to colostomy (principal) | CPT/HCPCS: 99213 ==

== ENCOUNTER 2023-03-27 13:55 | Outpatient (CLI) | payer OTHER, SELFPAY | END 2023-03-27 13:56 | disposition home or self-care (01) | LOC: WOUND 13:55 | PROVIDERS: PCP Internal Medicine; Visit Provider Nurse Practitioner Family | DX: Z43.2 Encounter for attention to ileostomy (principal); T81.32XS Disruption of internal operation (surgical) wound, not elsewhere classified, sequela | CPT/HCPCS: 99215 ==

== ENCOUNTER 2023-04-03 14:25 | Outpatient (CLI) | payer OTHER, SELFPAY | END 2023-04-03 14:26 | disposition home or self-care (01) | LOC: WOUND 14:25 | PROVIDERS: PCP Internal Medicine; Visit Provider Nurse Practitioner Family | DX: Z43.2 Encounter for attention to ileostomy (principal); T81.31XS Disruption of external operation (surgical) wound, not elsewhere classified, sequela | CPT/HCPCS: 99213 ==

== ENCOUNTER 2023-04-24 13:51 | Outpatient (CLI) | payer OTHER, SELFPAY ==
[2023-04-24 15:18] LABS: Basophils Percent Auto 0.2 % (0.0-3.0); Eosinophils Percent Auto 1.3 % (0.0-7.0); Hematocrit 38.4 % (37.0-53.0); Hemoglobin* 12.3 gm/dL (13.5-17.5); Immature Granulocytes Pct Auto 1.2 %; Lymphocytes Percent Auto 14.2 % (20-44); Mean Corpuscular HGB Conc 32 gm/dL (32-36); Mean Corpuscular Hemoglobin 28 pg (26-34); Mean Corpuscular Volume 86 fL (80-100); Monocytes Percent Auto 6.5 % (0.0-11.0); Neutrophils Percent Auto 76.6 % (42.0-72.0); Platelet Count* 621 K/uL (140-440); RDW Coefficient of Variation % 12.9 % (11.5-15.5); Red Blood Count 4.47 m/uL (4.30-5.90); White Blood Count* 12.08 K/uL (4.50-11.00)
[2023-04-24 15:19] LABS: Slide Review Reflex No
[2023-04-24 15:42] LABS: Chloride* 96 mmol/L (96-114); Sodium* 136 mmol/L (135-149)
[2023-04-24 15:45] LABS: Blood Urea Nitrogen* 18 mg/dL (7-30); Carbon Dioxide* 27 mmol/L (20-32); Creatinine* 1.1 mg/dL (0.5-1.5); Estimated Glomerular Filt Rate 75 ml/min
[2023-04-24 15:46] LABS: Calcium* 9.8 mg/dL (8.4-10.6); Glucose* 106 mg/dL (60-115)
== END 2023-04-24 13:52 | disposition home or self-care (01) ==
LOC: WOUND 13:51
PROVIDERS: PCP Internal Medicine; Visit Provider Nurse Practitioner Family
DX: Z43.2 Encounter for attention to ileostomy (principal); L92.8 Other granulomatous disorders of the skin and subcutaneous tissue; T81.32XS Disruption of internal operation (surgical) wound, not elsewhere classified, sequela; R53.83 Other fatigue; R63.0 Anorexia
CPT/HCPCS: 17250; 36415; 80048; 85025; 99212

== ENCOUNTER 2023-05-01 15:05 | Outpatient (CLI) | payer OTHER, SELFPAY | END 2023-05-01 15:06 | disposition home or self-care (01) | LOC: NFLDREF 05-03 12:14 | PROVIDERS: PCP Internal Medicine; Referring Provider Internal Medicine; Visit Provider Nurse Practitioner Family | DX: R53.81 Other malaise (principal); R53.1 Weakness; A04.72 Enterocolitis due to Clostridium difficile, not specified as recurrent; Z93.2 Ileostomy status | CPT/HCPCS: 82607; 82728; 86140; 87493 ==

== ENCOUNTER 2023-06-17 09:52 | Outpatient (CLI) | payer OTHER, SELFPAY | END 2023-06-17 09:53 | disposition home or self-care (01) | PROVIDERS: PCP Internal Medicine; Visit Provider Surgery | DX: D64.9 Anemia, unspecified (principal); R53.1 Weakness | CPT/HCPCS: 82040; 84134 ==

== ENCOUNTER 2023-07-08 07:59 | Outpatient (CLI) | payer OTHER, SELFPAY ==
--- NOTE | 2023-07-08 08:15 | CRLHL7_ITS ---
For Patients: As a result of the Century Cures Act, medical imaging exams and procedure reports are released immediately into your electronic medical record. You may view this report before your referring provider. If you have questions, please contact your health care provider. Technique: Single contrast water soluble contrast enema exam performed. Fluoroscopy time 77 seconds. Indication: ILEOSTOMY STATUS Comparison: 10/26/2022 Findings: The colonic anastomosis is intact without stricture, obstruction or extravasation. Mild diverticulosis present throughout the colon. Contrast extends into the ileostomy. Minimal residual contrast post evacuation. Impression: Intact colonic anastomosis. Dictated by Pedro Fritz MD @ 07/08/2023 10:49:02 AM (Electronically Signed)
== END 2023-07-08 08:00 | disposition home or self-care (01) ==
LOC: RAD 07:59
PROVIDERS: PCP Internal Medicine; Visit Provider Surgery
DX: Z93.2 Ileostomy status (principal)
CPT/HCPCS: 74270

== ENCOUNTER 2023-08-10 07:10 | Inpatient (IN) | payer OTHER, SELFPAY ==
[2023-08-10] VITALS (24 sets, daily range): BP systolic 111–133; BP diastolic 67–99; PULSE 71–85; RESP 12–18; TEMP 35.9–36.8; O2SAT 91–99; BMI 24.7
[2023-08-10] MEDS: LACTATED RINGERS 1000 ML 1,000 ML 100 ML IV ×3 (07:35→12:05)
--- NOTE | 2023-08-10 08:06 | PM.GSPRC ---
Operative Note Pre-op diagnosis: 1. s/p colostomy takedown with protective loop ileostomy in February of 2023. 2. Symptomatic Peristomal hernia. Post-op diagnosis: Same Type of Procedure: 1. Loop ileostomy takedown with primary anastomosis. 2. Peristomal hernia repair with Phasix mesh. Indications: 62-year-old male was seen in clinic for discussion of ileostomy takedown. Patient is s/p laparoscopic converted to open colostomy takedown with primary anastomosis and protective loop ileostomy in February of 2023. Patient desired bowel continuity. His ileostomy was working well and he had no issues with ileostomy cares. Patient has had mild anemia with hemoglobin of 11.5 in April of 2023. He has been taking iron supplements. Patient also noticed a hernia near his ileostomy with occasional pain in the hernia with walking. Patient had a Gastrografin enema that did not show a leak at colorectal anastomosis. Patient had normal albumin. On clinical exam patient had a pink brooked ileostomy protruding above the level of the skin. There was no skin maceration. There was a bulge noted around his ileostomy consisted with peristomal hernia. Given patient's clinical history and his desire for bowel continuity, and ileostomy takedown with repair of peristomal hernia with absorbable mesh was recommended. The procedure was discussed in detail. The risks associated procedure including infection, bleeding, hernia recurrence, and the need for additional procedures were all discussed with the patient, and he agreed to proceed. Procedure Description: After discussing the risks and benefits of the procedure, the patient signed informed consent.? The operative site was marked and the patient was brought to the operating room and placed on the operating table in supine position.? Care was taken to pad the patient's pressure points.?? The patient was then intubated by anesthesia.?? The operative site was then prepped and draped in the usual sterile fashion.? A time-out was then performed. Loop ileostomy opening was closed with a [id number] Vicryl suture prior to prepping the abdomen. The loop ileostomy's mucocutaneous junction was divided with cautery circumferentially. Subcutaneous fat was divided with cautery in the plane between subcutaneous fat and loop ileostomy. This dissection was carried down to the fascia and then circumferentially around the fascia and subsequently into the peritoneal cavity using electrocautery. The peritoneal cavity was entered and the stoma completely mobilized off the abdominal wall. There were some wispy adhesions of the small intestine, and those were lysed with Metzenbaum scissors. A sufficient length of proximal and distal small bowel was exteriorized for anastomosis. The segment of small intestine containing loop ileostomy was then resected with a blue load of ELIZABETH stapler. Small bowel mesentery leading to the loop ileostomy was divided with clamps and Vicryl ties. The cut edges of the small intestine were then reapproximated with a 3-0 silk suture. We then proceeded with side to side functional end to end small-bowel anastomosis. The towels were placed around the ileostomy incision. The enterotomy was made in the distal loop of the small intestine and proximal end of the small intestine with cautery. The bowel lumen was entered. The anastomosis was then created by placing hands of the 100 ELIZABETH stapler into the small-bowel lumen. The small bowel was rotated making sure that anastomosis was created on the anti mesenteric side. The stapler was then removed and the staple line was examined from the inside. The staple line was intact. The common enterotomy was then closed with interrupted 3-0 silk pop-off sutures using Lembert stitches. A crotch stitch was placed using 3-0 silk suture as well. The staple line was patent on palpation and well perfused. I elected to reinforce the middle of the staple line with 2 additional 3-0 silk Lembert sutures. There was no significant small bowel mesenteric defect so this was not closed. All of the dirty towels and dirty instruments were then removed and surgeon and assistants changed their gloves. The anastomosis was then placed into the abdomen. I then proceeded with repair of parastomal hernia. The hernia sac was excised and majority of it was laterally. The hernia sac was discarded. The anterior fascia was grasped and subfascial plane was developed with cautery. Scar tissue was encountered during this dissection. Inferior laterally the fusion of the fascial layers was encountered and not divided. Hemostasis was achieved with cautery. Peritoneum and posterior fascia was then also mobilized of the muscle just enough to achieve peritoneal closure. The peritoneum and posterior fascia was then closed with interrupted [id number] 0-0 Vicryl sutures. Local anesthetic was injected into the fascia and subcutaneous space circumferentially. Peristomal hernia fascial defect was approximately 2.5 x 4 cm. I then used Phasix mesh 8 x 12 cm and customized it to the subfascial space with good overlap of the fascial defect. The mesh was placed subfascially. The anterior fascia was then closed over the mesh with [id number] 0-0 Vicryl sutures and 0-0 PDS sutures. The incision was then irrigated with normal saline. Subcutaneous fat was minimally mobilized inferiorly to reapproximate subcutaneous space. Subcutaneous fat was then reapproximated with interrupted 2-0 Vicryl sutures medially. Laterally, the subcutaneous space was left open down to the anterior fascia. The dermis medially was reapproximated with interrupted 3-0 Vicryl sutures. The skin of the medial half of ostomy incision was then closed with jen. The lateral half of the ostomy incision was left open and the incision was then packed with iodoform 1 inch Nu Gauze. The incision was covered with sterile gauze and ABD pad and covered with tape. All counts were correct at the end of the case. The patient was then woken and transported to the recovery area in stable condition. ? The patient tolerated the procedure well. Findings: Loop ileostomy was resected and primary [id number] small bowel anastomosis was created with ELIZABETH stapler. Parastomal hernia was small and repaired with Phasix mesh. Implants: Phasix mesh Anesthesia: BRITTA Surgeon: Justyn Bueno MD Estimated blood loss (mL): 20 Additional Specimen Information: 1. Loop ileostomy. Condition: stable Disposition: PACU Date of procedure: 08/10/23
[2023-08-10] MEDS: SODIUM CHLORIDE 0.9 % (FLUSH) 10 ML SYRINGE IVF (08:10)
[2023-08-10] MEDS: CEFAZOLIN 2 GM INJ IVP (08:37)
[2023-08-10] MEDS: BUPIVACAINE 0.25 %/EPI 1:200K 30 ml 20 ML INJECTION (10:47)
--- NOTE | 2023-08-10 11:32 | W.ANESCHARGE ---
Anesthesia Charges Start Date/Time Anesthesia Start Date: 08/10/23 Anesthesia Start Time: 08:26 Stop Date/Time Anesthesia Stop Date: 08/10/23 Anesthesia Stop Time: 11:27
[2023-08-10] MEDS: HYDROmorphone 0.5 mg/0.5 ml inj IVP ×3 (12:16→22:54)
--- NOTE | 2023-08-10 15:18 | PC.NURSE ---
SHIFT NOTE: PATIENT TRANSFERRED TO MED/SURG RECOVERY AT 1200 TODAY. VSS AND PATIENT HAS BEEN AFEBRILE. PATIENT'S PAIN TO ABDOMEN NOTED TO BE 6/10 SHORTLY AFTER ARRIVAL TO M/S UNIT. PRN DILAUDID IVP WAS GIVEN WHICH WAS EFFECTIVE UPON FOLLOWUP. DRESSING COVERING ABDOMINAL INCISION NOTED TO BE CLEAN, DRY AND INTACT UPON INSPECTION. BOWEL SOUNDS NOTED TO BE ACTIVE IN ALL FOUR QUADRANTS WITH FLUIDS ENCOURAGED. PATIENT CURRENTLY HAS ORDER FOR CL DIET IN PLACE THOUGH DECLINED TO HAVE ANYTHING OTHER THAN WATER AND ICE CHIPS WHEN APPROACHED. HE DENIES NAUSEA WHEN ASKED AND STATES ONCE HE IS TAKING PO MEDICATIONS HE PREFERS TO TAKE TYLENOL RATHER THAN STRONGER PAIN MEDICATION. PATIENT HAS NOT YET VOIDED THOUGH URINAL IS WITHIN REACH AND HE STATES HE FEELS THOUGH HE WILL BE ABLE TO URINATE SOON. NO COUGH NOTED OR REPORTED. PATIENT ALERT & ORIENTED X 4 AT BASELINE. BILATERAL SUNNI STOCKINGS AND SCDS IN PLACE. LR RUNNING AT 100 ML/HR PER CURRENT ORDER IN PLACE.
[2023-08-10] MEDS: HYDROCODONE-ACETAMIN 5-325 MG 1 TAB PO (20:50)
--- NOTE | 2023-08-10 22:18 | PC.NURSE ---
VSS, RA. Tightness pain of 1-3 in abdomen- relief w/ PRN 0.5 mg IV dilaudid x1 & 1 tab norco x1. Tolerating clear liquid diet, taking it slow. Has had apple juice, scanlon ice, and water. Hypoactive bowel sounds, no flatus. Abdomen soft. Void x2- 550 cc. Walked tripathi x2- tolerated well. Dressing on abdomen, c/d/i. here for a bit late afternoon. Will continue to monitor, follow POC, and keep pt and family updated. Joyce Silverio RN
[2023-08-11] VITALS (7 sets, daily range): BP systolic 110–130; BP diastolic 67–80; PULSE 69–89; RESP 16–18; TEMP 36.3–36.8; O2SAT 95–98
[2023-08-11] MEDS: LACTATED RINGERS 1000 ML 1,000 ML 100 ML IV ×2 (02:49→13:18)
[2023-08-11] MEDS: HYDROmorphone 0.5 mg/0.5 ml inj IVP (02:49)
--- NOTE | 2023-08-11 04:45 | PC.NURSE ---
Shift note: Pt is independent in room. Alert and oriented. Pain level was rated at 5 at 0300 and deluded 0.5mg given. No fever, N/V and abdominal pain observed since resumed clear liquid diet. Dressing appears clean and dry. Vitally stable.
[2023-08-11] MEDS: HYDROCODONE-ACETAMIN 5-325 MG 1 TAB PO (09:22)
[2023-08-11] MEDS: ONDANSETRON 2 MG/ML inj IVP (13:19)
--- NOTE | 2023-08-11 13:23 | PM.GSPN ---
Subjective Subjective Date Seen: 08/11/23 Interval history: Patient is doing well. He complains of nausea but no vomiting. He passed gas a couple times. His abdominal pain is controlled with pain medication. He ambulated once today. He tolerated some clears yesterday. Exam Narrative: Exam Narrative: Abdomen is soft, not distended, tender to palpation in the right mid abdomen at the site of the incision. Const: Vital Signs, click to edit/add: Vital Signs - 24 hr 08/10/23 13:30 08/10/23 13:30 08/10/23 14:00 Temperature 97.0 F L 97.0 F L 96.8 F L Pulse Rate [Right Pulse Oximeter] 74 74 76 Respiratory Rate 16 16 16 Blood Pressure [Le ft Arm] 119/75 119/75 117/72 Blood Pressure [Ri ght Arm] Pulse Oximetry 91 91 93 Oxygen Delivery Me thod Room Air Room Air 08/10/23 14:00 08/10/23 15:00 08/10/23 15:00 Temperature 96.8 F L 96.9 F L 96.9 F L Pulse Rate [Right Pulse Oximeter] 76 82 82 Respiratory Rate 16 16 16 Blood Pressure [Le ft Arm] 117/72 116/84 116/84 Blood Pressure [Ri ght Arm] Pulse Oximetry 93 93 93 Oxygen Delivery Me thod Room Air 08/10/23 16:00 08/10/23 17:00 08/10/23 18:00 Temperature 98.1 F 98.2 F 97.8 F Pulse Rate [Right Pulse Oximeter] 74 85 81 Respiratory Rate 14 14 16 Blood Pressure [Le ft Arm] 118/71 118/74 119/67 Blood Pressure [Ri ght Arm] Pulse Oximetry 95 96 93 Oxygen Delivery Me thod 08/10/23 20:56 08/10/23 23:00 08/11/23 03:00 Temperature 98.1 F 97.9 F 97.4 F L Pulse Rate [Right Pulse Oximeter] 72 77 69 Respiratory Rate 16 16 16 Blood Pressure [Le ft Arm] 123/76 113/84 113/67 Blood Pressure [Ri ght Arm] Pulse Oximetry 97 93 96 Oxygen Delivery Me thod Room Air Room Air Room Air 08/11/23 07:00 08/11/23 07:00 08/11/23 11:00 Temperature 98.2 F Pulse Rate [Right Pulse Oximeter] 84 84 76 Respiratory Rate 18 18 18 Blood Pressure [Le ft Arm] Blood Pressure [Ri ght Arm] 124/78 127/80 Pulse Oximetry 95 97 Oxygen Delivery Me thod Room Air Room Air Progress Note: A&P Assessment and plan (1) Status post reversal of ileostomy: Status: Acute Plan 62-year-old male s/p loop ileostomy takedown and repair of incisional parastomal hernia with Phasix mesh POD 1. Will continue keeping patient on clear since he had nausea. He does seem to have return of bowel function. If his nausea is improving, okay to advance to full liquid diet. The ostomy dressing should be changed daily. This was communicated with the patient's nurse. Patient should wear abdominal binder on all the time.
[2023-08-11] MEDS: ACETAMINOPHEN 325 MG TABLET 650 MG PO (15:00)
--- NOTE | 2023-08-11 19:42 | PC.NURSE ---
Nursing Care Hours: [id number] Pt this shift calm and cooperative, alert and oriented. Independent in room. Seen walking the tripathi x2. IV fluids running, pt voiding. No oral intake today d/t nausea and fear of vomiting. Zofran given x1 otherwise declined. Cool wash cloth to forehead and back of neck effective. Pt reported passing gas and sm loose BM. Dressing changed, wet to dry. Pt did wince with pain but otherwise tolerated well. Pain rated 2-3/10, treated per eMAR.
--- NOTE | 2023-08-11 22:32 | PC.NURSE ---
End of shift report [id number]: Pain reported to abdomen rated 2/10, patient declined prn medications and ice for relief, states he is tolerating pain well. Denies any nausea at this time. [employer] encouraged patient to increase fluid intake, declined any fluids Joyce ALLEN received call from Dr. Bueno who was checking in on patient, per MD staff to encourage patient to increase fluid intake and its ok to offer crackers. [employer] updated patient applications scientist from MD and discussion regarding fluids and crackers, patient continued to decline.
[2023-08-11] MEDS: LACTATED RINGERS 1000 ML 1,000 ML 75 ML IV (22:40)
[2023-08-12 03:12] VITALS: BP 124/78; PULSE 84; RESP 16; TEMP 36.4; O2SAT 96
--- NOTE | 2023-08-12 03:30 | PC.NURSE ---
Pt rested well this night. Still not drinking very much water even after encouragement from RN. Pt IND in room. Had BM previous shift. States pain is tolerable and refuses pain meds.
--- NOTE | 2023-08-12 07:43 | P.DS_ITS ---
DS: Providers Provider Date Seen: 08/12/23 Date of admission: 08/10/23 07:10 Primary care physician: Marvin Yun MD Admitting Clinician: Justyn Bueno MD Attending Physician on discharge: Justyn Bueno MD DS: Diagnosis Discharge Diagnosis (1) Status post reversal of ileostomy: Status: Acute DS: Summary Hospital Course Hospital Course: Patient was admitted to the hospital after loop ileostomy takedown and repair of peristomal hernia with Phasix mesh. Patient has been doing well postoperatively. He was passing gas and had a liquid bowel movement. Patient had nausea and was slow to advance his diet. His pain was improving and patient was barely taking any pain medication. He was ambulating. Time Spent with Patient Time attestation: Total time spent providing and/or coordinating discharge services: Exam Narrative: Exam Narrative: Abdomen: Soft, not distended, minimally tender to palpation on the right side near his ileostomy takedown incision. The partially closed ileostomy incision is with intact jen with no surrounding erythema. The lateral open part of the incision was repacked with iodoform Nu Gauze. Moderate amount of thin s lightly bloody serosanguineous fluid came out from the incision. The packing was then covered by gauze and tape. Const: Vital Signs, click to edit/add: Vital Signs - 24 hr 08/11/23 11:00 08/11/23 15:00 08/11/23 15:00 Temperature Pulse Rate [Right Pulse Oximeter] 76 83 83 Respiratory Rate 18 18 18 Blood Pressure [Ri ght Arm] 127/80 130/76 Pulse Oximetry 97 98 Oxygen Delivery Me thod Room Air Room Air 08/11/23 19:00 08/11/23 23:29 08/11/23 23:32 Temperature 98.3 F 97.6 F Pulse Rate [Right Pulse Oximeter] 89 80 80 Respiratory Rate 18 16 16 Blood Pressure [Ri ght Arm] 113/79 110/68 Pulse Oximetry 96 96 Oxygen Delivery Me thod Room Air Room Air 08/12/23 03:12 Temperature 97.6 F Pulse Rate [Right Pulse Oximeter] 84 Respiratory Rate 16 Blood Pressure [Ri ght Arm] 124/78 Pulse Oximetry 96 Oxygen Delivery Me thod Room Air DS: Data Data Completed and Pending Completed studies during hospitalization: Procedures Bypass Descending Colon to Cutaneous, Open Approach (10/17/22) Bypass Ileum to Cutaneous, Open Approach (03/17/23) Inspection of Lower Intestinal Tract, Percutaneous Endoscopic Approach (10/17/22) Inspection of Lower Intestinal Tract, Via Natural or Artificial Opening Endoscopic (03/17/23) Introduction of Other Gas into Respiratory Tract, Via Natural or Artificial Opening (03/17/23) Release Omentum, Open Approach (03/17/23) Release Small Intestine, Open Approach (03/17/23) Repair Abdominal Wall, Open Approach (03/17/23) Repair Small Intestine, Percutaneous Endoscopic Approach (10/17/22) Reposition Descending Colon, Open Approach (03/17/23) Resection of Sigmoid Colon, Open Approach (10/17/22) Discharge Plan Discharge Disposition: Home, Self-Care Date of Admission: 08/10/23 07:10 Attending Provider on Discharge: Justyn Bueno Primary Care Provider: Marvin Yun Condition: Improved Anticipated Discharge Date/Time: 08/12/23 19:41 Discharge Orders: Discharge Order (Routine); Ordered 08/12/23 Ordered By: Justyn Bueno Patient Education: Ileostomy Reversal (DC) Additional Instructions: Patient should do dressing changes to his right sided incision daily with 0.5 in Nu Gauze moistened with saline or iodoform Nu Gauze. The incision can be covered with gauze and tape. Activity Level: No strenuous activity Discharge Diet: Regular Follow Up Appointments: Justyn Bueno MD [Staff Physician] - (One week nurse only follow-up to remove jen. Two weeks follow up with Dr. Bueno in clinic.) [facility]: [facility] Inst[facility] Discharge Comments: If patient is tolerating regular diet, he is okay to discharge home after dinner today.
[2023-08-12 08:30] VITALS: BP 117/70; PULSE 86; RESP 16; TEMP 36.4; O2SAT 99
[2023-08-12] MEDS: ENOXAPARIN 40 MG/0.4 ML INJ SUBCUT (08:54)
[2023-08-12] MEDS: LACTATED RINGERS 1000 ML 1,000 ML 75 ML IV (12:22)
[2023-08-12 13:00] VITALS: BP 111/64; PULSE 82; RESP 16; TEMP 35.8; O2SAT 97
[2023-08-12] MEDS: ACETAMINOPHEN 325 MG TABLET 650 MG PO (13:39)
--- NOTE | 2023-08-12 14:39 | PC.NURSE ---
AFEBRILE. TOLERATING MINIMAL AMOUNTS OF REGULAR DIET. DENIES N/V. ENCOURAGE PATIENT TO DRINK FLUIDS AND AGREEABLE TO POWERADE. AMBULATING INDEPENDENTLY IN HALLWAY. DRESSING CHANGE TO ABDOMEN COMPLETED PER MD THIS AM. DRESSING SUPPLIES COLLECTED FOR PATIENT TO TAKE HOME IN CASE OF DISCHARGE TONIGHT.
[2023-08-12 15:30] VITALS: BP 107/69; PULSE 78; RESP 16; TEMP 36.6; O2SAT 96
--- NOTE | 2023-08-12 18:50 | PC.NURSE ---
Discharge 1845- Patient tolerates drinking poweraid and eats half portion of mashed potatoes, turkey, and gravy. MD updated- okays to discharge. IV is discontinued with catheter intact. Discharge instructions given verbally and in-print. Patient leaves with all belongings, with .
== END 2023-08-12 18:45 | disposition home or self-care (01) | DRG 331 ==
PROVIDERS: Admitting Provider Surgery; PCP Internal Medicine; Visit Provider Surgery
PROC: 0DBE0ZZ Excision of Large Intestine, Open Approach (ICD-10-PCS; CPT 44620; principal; 2023-08-10 08:30)
DX: Z43.2 Encounter for attention to ileostomy (principal); K43.5 Parastomal hernia without obstruction or gangrene; R11.0 Nausea
CPT/HCPCS: 790; A9270; C1781; J0330; J0690; J1100; J1170; J1650; J2405; J2704; J3010; J7120

== ENCOUNTER 2024-05-27 13:32 | Outpatient (CLI) | payer OTHER, SELFPAY ==
--- NOTE | 2024-05-27 14:00 | CRLHL7_ITS ---
For Patients: As a result of the Century Cures Act, medical imaging exams and procedure reports are released immediately into your electronic medical record. You may view this report before your referring provider. If you have questions, please contact your health care provider. Indication: RT SIDED ABDOMINAL WALL HERNIA Technique: CT Abdomen/Pelvis W/ 112CC ISOVUE 370 Please note that all CT scans at this facility use dose modulation, iterative reconstruction, and/or weight-based dosing when appropriate to reduce radiation dose to as low as reasonably achievable. Comparison: 10.26.22 Findings: Postop changes of sigmoidectomy. No bowel obstruction. Left lower quadrant ostomy has been taken down. Hernia is present at the ostomy site measuring 10.4 cm containing nondistended loops of small bowel. Additionally, there is a right-sided abdominal wall hernia measuring 11.2 cm which contains mostly fat in addition to a few loops of nondistended small bowel. Some of the small bowel loops distally contains stool. Bladder normal. Prostate nonenlarged. Ureters are within normal limits. Normal kidneys and adrenal glands. Spleen normal with incidental splenule. Normal pancreas. Normal liver. Tiny gallstones may be present in the gallbladder lumen. No adenopathy. Incidental retroaortic left renal vein. Normal appendix. Mild vascular calcifications. Mild dependent areas of atelectasis in both lung bases. No fracture. Supraumbilical hernia also present containing fat measuring 7.9 cm. Small incidental focus of fat necrosis within the left paramidline upper abdominal wall fat measuring 12 millimeters. Impression: Right-sided abdominal wall hernia measuring 11.2 cm containing mostly fat although there are a few nondistended loops of small bowel present. Additional left-sided hernia is present containing fat and loops of nondistended small bowel measuring 10.4 cm. Supraumbilical hernia containing fat measuring 7.9 cm. Postop changes sigmoidectomy with primary anastomosis. No bowel obstruction. However, there does appear to be some element of small bowel dysmotility present. Possible cholelithiasis. Please note that all CT scans at this facility use dose modulation, iterative reconstruction, and/or weight-based dosing when appropriate to reduce radiation dose to as low as reasonably achievable. Dictated by Pedro Fritz MD @ 05/30/2024 9:54:01 AM (Electronically Signed)
[2024-05-27 14:15] LABS: Creatinine* 1.2 mg/dL (0.5-1.5); Estimated Glomerular Filt Rate 67 ml/min
== END 2024-05-27 13:33 | disposition home or self-care (01) ==
LOC: CT 13:33
PROVIDERS: PCP Internal Medicine; Visit Provider Surgery
DX: K43.9 Ventral hernia without obstruction or gangrene (principal); K42.9 Umbilical hernia without obstruction or gangrene; K80.20 Calculus of gallbladder without cholecystitis without obstruction
CPT/HCPCS: 36415; 74177; 82565; Q9967